=== PATIENT | male | born 1975 | race Caucasian/White ===

== ENCOUNTER 2017-05-26 18:31 | Inpatient (IN) ==
[2017-05-26] MEDS ORDERED: NS 1,000 ML IV ONE ×3 (19:01→23:37)
[2017-05-26 19:41] LABS: MANUAL DIFF NEEDED? NO
[2017-05-26 19:44] LABS: BASO% 0.2 % (0.0-0.8); EOS# 0.09 X1000 (0.0-0.7); EOS% 0.6 % (0.0-10.0); HEMATOCRIT 47.1 % (42.0-52.0); HEMOGLOBIN 16.2 g/dL (14.0-18.0); IMM GRAN# 0.02 X1000 (0.0-0.04); IMM GRAN% 0.1 % (0.0-0.5); LYMPH# 1.45 X1000 (1.2-3.4); MCH 30.8 PG (27-31); MCHC 34.4 g/dL (33-37); MCV 89.5 FL (81-99); MONO# 0.93 X1000 (0.11-0.59); MONO% 6.4 % (1.7-9.3); MPV 10.5 FL (7.4-10.4); NEUT% 82.7 % (42.2-75.2); PLT 283 X1000 (130-400); RBC 5.26 XMIL (4.7-6.1)
[2017-05-26 20:08] LABS: ACETAMINOPHEN < 1.2 ug/mL (10-30); AGAP 16; ALBUMIN 4.4 g/dL (3.5-5.0); ALKALINE PHOSPHATASE 76 U/L (32-122); BUN 10 mg/dL (8-22); CHLORIDE 104 mmol/L (98-107); COSMO 285; GOT 24 U/L (10-34); GPT 30 U/L (10-44); POTASSIUM 3.5 mmol/L (3.5-5.1); SODIUM 144 mmol/L (136-145); TCO2 24 mmol/L (25-35); TOTAL BILIRUBIN 0.23 mg/dL (0.20-1.00); TOTAL PROTEIN 7.4 g/dL (6.3-8.3)
[2017-05-26 20:23] LABS: FREE T4 1.55 ng/dL (0.93-1.70)
[2017-05-26 20:38] LABS: URINE CULTURE NEEDED? NO; URINE MICRO REVIEW NEEDED? NO; URINE SOURCE CATH
[2017-05-26 20:42] LABS: BILIRUBIN URINE NEGATIVE (NEGATIVE); BLOOD URINE NEGATIVE (NEGATIVE); COLOR YELLOW; GLUCOSE URINE NEGATIVE (NEGATIVE); LEUKOCYTES URINE NEGATIVE (NEGATIVE); NITRITE URINE NEGATIVE (NEGATIVE); PROTEIN URINE TRACE mg/dL (NEGATIVE); SP GRAVITY URINE 1.017; TURBIDITY URINE CLEAR (CLEAR); UR EPITHELIAL CELLS <10 /HPF (<10); URINE BACTERIA NEGATIVE /HPF; URINE RBC <10 /HPF (<10); URINE WBC <10 /HPF (<10); UROBILINOGEN URINE NORMAL (NORMAL)
[2017-05-26 20:53] LABS: UR AMPHETAMINES MT NONE DETECTED (NONE DETECT); UR BARBITUATES MT NONE DETECTED (NONE DETECT); UR BENZODIAZ MT NONE DETECTED (NONE DETECT); UR CANNABIS MEDTOX NONE DETECTED (NONE DETECT); UR COCAINE MT NONE DETECTED (NONE DETECT); UR METHADONE MEDTOX NONE DETECTED (NONE DETECT); UR OPIATES MT NONE DETECTED (NONE DETECT); UR OXYCODONE MEDTOX NONE DETECTED (NONE DETECT); UR PCP MEDTOX NONE DETECTED (NONE DETECT)
[2017-05-26] MEDS ORDERED: ATIVAN IV ONE (21:04)
--- NOTE | 2017-05-26 22:02 | Diag Imaging Result Doc PS360 ---
CT HEAD W/O CONTRAST - 05/26/2017 INDICATION: ams TECHNIQUE: A CT dose reduction protocol was used. COMPARISON: None FINDINGS: The ventricles and sulci are normal in size and contour. No intracranial mass or hemorrhage. The skull is intact. The sinuses mastoids and middle ears are clear. IMPRESSION: Negative exam. Electronically signed by Eddie Alves 05/26/2017 9:59 PM
--- NOTE | 2017-05-26 22:04 | Diag Imaging Result Doc PS360 ---
CHEST-PORTABLE - 05/26/2017 INDICATION: ams TECHNIQUE: COMPARISON: 05/19/2017 FINDINGS: The lungs are normally expanded and clear. Heart size and mediastinal contours are normal. No pneumothorax or pleural effusion. IMPRESSION: Negative exam. Electronically signed by Eddie Alves 05/26/2017 10:02 PM
--- NOTE | 2017-05-26 22:11 | ED EKG INTERP ---
This chart was entered by Darrel Covarrubias Scribe, acting as scribe for Tiburcio Lehman MD. EKG Interpretation - EKG Time of EKG reading by physician:: 19:54 EKG Read and Signed by:: Tiburcio Lehman EKG Interpretation (*Must complete 3 of following elements*): Normal Rate: 133 Rhythm: Sinus tachycardia Attestation - Physician/ NANETTE Attestation Patient care was provided by Advanced Practice Provider:: No The physician spent face to face time with patient:: Yes Advanced Practice Provider documentation review:: Supervising physician onsite and consulted in the evaluation and care of this patient. The physician did have a face to face encounter with the patient. This chart was documented by the indicated scribe, (Darrel Covarrubias Scribe) and accurately reflects the services I performed and decisions made by me, Tiburcio Champion MD, as attested by the provider's signature.
--- NOTE | 2017-05-26 22:13 | PROVIDER DOCUMENTATION ---
This chart was entered by Darrel Covarrubias Scribe, acting as scribe for Tiburcio Lehman MD. [id number] Abuse/Overdose - General Chief Complaint: Overdose Stated Complaint: od Time Seen by Provider: 05/26/17 19:00 Source: family, EMS Unable to obtain history due to:: altered Allergies/Adverse Reactions: Allergies Allergy/AdvReac Type Severity Reaction Status Date / Time No Known Allergies Allergy Verified 05/26/17 18:56 Home Medications: Home Medication List Medication Instructions Recorded Confirmed Last Taken Type NK [No Home Medications] 05/26/17 05/26/17 Unknown History - History of Present Illness-Drug/Alcohol Nature of Presenting Problem: Pt is a 41 yowm who presents to ER via EMS with CC of AMS/disorientation. Mother reports that pt's brother called EMS today because pt became disoriented and confused/altered and was unable to get up from fall. Mother reports that pt has intermittently abused meth x10 years, was sent to rehab, relapsed, but then self admitted himself and was released 1 week ago. On exam, pt is awake, but non verbal. This episode of drinking or use began:: just prior to arrival Severity: reports: moderate, severe Situational problems related to:: reports: N/A Psychiatric Complaints: reports: hallucinating (visually) Associated Symptoms: reports: other (See HPI;). denies: denies symptoms Any injuries associated with this episode of intoxication?: No Similar Symptoms Previously?: Yes - Substance Abuse Substance Use: reports: amphetamines Review of Systems - Adult - REVIEW OF SYSTEMS - ADULT ROS:: ROS per family Constitutional: reports: no symptoms reported Eyes: reports: no symptoms reported Ears, Nose, Mouth & Throat: reports: no symptoms reported Cardiovascular: reports: no symptoms reported Respiratory: reports: no symptoms reported Gastrointestinal: reports: no symptoms reported Genitourinary: reports: no symptoms reported Musculoskeletal: reports: no symptoms reported Integumentary: reports: no symptoms reported Neurological: reports: no symptoms reported Psychiatric: reports: alcohol/drug dependence, other (disoriented/altered). denies: anxiety, anti-depressant use, depression, emotional problems, insomnia, panic attacks, suicidal thoughts Endocrine: reports: no symptoms reported Hematologic/Lymphatic: reports: no symptoms reported Allergic/Immunologic: reports: no symptoms reported All Other Systems: Reviewed and Negative Past History - Adult - PAST MEDICAL HISTORY-ADULT Review of Records: reports: Nursing Assessment Review, Medications Reviewed Respiratory: reports: asthma Psychiatric: reports: anxiety, depression. denies: suicide attempt - PRIOR SURGERIES/PROCEDURES Surgical/Procedure History: reports: other (FINGER AMPUTATION) - IMMUNIZATION STATUS Childhood Immunizations: See Nurse Assessment Flu Vaccine: See Nurse Assessment - SOCIAL HISTORY Substance Use: amphetamines Physical Exam-General - PHYSICAL EXAM-ADULT Initial Vital Signs Reviewed: Yes - CONSTITUTIONAL General Appearance: alert, moderate distress, other (pt is awake and alert but non-verbal with visual hallucinations, swatting/staring/and blowing at things above his head) - EYES Eyes: PERRL/EOMI, pink conjunctivae - RESPIRATORY Respiratory: chest non-tender, lungs clear, normal breath sounds, no pleuratic chest pain, no respiratory distress, no accessory muscle use. negative: respiratory distress, decreased breath sounds, accessory muscle use, wheezing - CARDIOVASCULAR Cardiovascular: normal peripheral pulses, tachycardia, other (HTN (184/127)). negative: regular rate, rhythm, bradycardia, irregularly irregular - SKIN Integumentary: normal color, normal turgor, diaphoresis. negative: warm/dry, ecchymosis, laceration(s) - PSYCHIATRIC Psych/Mental Status: disheveled, other (awake; non-verbal; visual hallucinations ). negative: normal mood/affect, normal thought content, normal thought process , oriented x 3 Progress - PLAN OF CARE/RESULTS Progress/Plan/Lab Results: Vital Signs - 8 hr 05/26/17 18:49 05/26/17 18:50 05/26/17 20:34 Temperature 98.7 F Pulse Rate 135 H 133 H 120 H Respiratory Rate 33 H 32 H 20 Blood Pressure 144/88 144/88 143/127 O2 Sat by Pulse Oximetry 93 L 94 L 96 05/26/17 21:36 Temperature Pulse Rate 124 H Respiratory Rate 29 H Blood Pressure 189/130 O2 Sat by Pulse Oximetry 99 Laboratory Results - last 24 hr 05/26/17 05/26/17 05/26/17 19:30 19:30 19:30 WBC 14.55 H RBC 5.26 Hgb 16.2 Hct 47.1 MCV 89.5 MCH 30.8 MCHC 34.4 RDW Std Deviation 14.4 Plt Count 283 MPV 10.5 H Immature Gran % (Auto) 0.1 Neut % (Auto) 82.7 H Lymph % (Auto) 10.0 L [place] % (Auto) 6.4 Eos % (Auto) 0.6 Baso % (Auto) 0.2 Immature Gran # (Auto) 0.02 Neut # (Auto) 12.03 H Lymph # (Auto) 1.45 [place] # (Auto) 0.93 H Eos # (Auto) 0.09 Baso # (Auto) 0.03 Sodium 144 Potassium 3.5 Chloride 104 Carbon Dioxide 24 L Anion Gap 16 BUN 10 Creatinine 1.5 H Estimated GFR/1.73 m2 52 BUN/Creatinine Ratio 7 Glucose 87 Calculated Osmolality 285 Calcium 9.0 Total Bilirubin 0.23 AST 24 ALT 30 Alkaline Phosphatase 76 Creatine Kinase Total Protein 7.4 Albumin 4.4 Globulin 3.0 Albumin/Globulin Ratio 1.5 Vitamin B12 TSH Free T4 Urine Source Urine Color Urine Turbidity Urine pH Ur Specific [place] Urine Protein Ur Glucose (Stick) Ur Ketones (Stick) Urine Blood Urine Nitrite Urine Bilirubin Urobilinogen Dipstick Urine Leukocytes Urine WBC (Auto) Urine RBC (Auto) U Epithel Cells (Auto) Urine Bacteria (Auto) Salicylates < 3.00 L Urine Opiates Screen Ur Oxycodone Screen Urine Methadone Screen Acetaminophen < 1.2 L Ur Barbiturates Screen Ur Phencyclidine Scrn Ur Amphetamines Screen U Benzodiazepines Scrn Urine Cocaine Screen U Cannabinoids Screen Plasma/Serum Ethyl Alc 05/26/17 05/26/17 05/26/17 19:30 19:30 20:30 WBC RBC Hgb Hct MCV MCH MCHC RDW Std Deviation Plt Count MPV Immature Gran % (Auto) Neut % (Auto) Lymph % (Auto) [place] % (Auto) Eos % (Auto) Baso % (Auto) Immature Gran # (Auto) Neut # (Auto) Lymph # (Auto) [place] # (Auto) Eos # (Auto) Baso # (Auto) Sodium Potassium Chloride Carbon Dioxide Anion Gap BUN Creatinine Estimated GFR/1.73 m2 BUN/Creatinine Ratio Glucose Calculated Osmolality Calcium Total Bilirubin AST ALT Alkaline Phosphatase Creatine Kinase 200 Total Protein Albumin Globulin Albumin/Globulin Ratio Vitamin B12 259 TSH 1.91 Free T4 1.55 Urine Source CATH Urine Color YELLOW Urine Turbidity CLEAR Urine pH 6.0 Ur Specific [place] 1.017 Urine Protein TRACE A Ur Glucose (Stick) NEGATIVE Ur Ketones (Stick) NEGATIVE Urine Blood NEGATIVE Urine Nitrite NEGATIVE Urine Bilirubin NEGATIVE Urobilinogen Dipstick NORMAL Urine Leukocytes NEGATIVE Urine WBC (Auto) <10 Urine RBC (Auto) <10 U Epithel Cells (Auto) <10 Urine Bacteria (Auto) NEGATIVE Salicylates Urine Opiates Screen Ur Oxycodone Screen Urine Methadone Screen Acetaminophen Ur Barbiturates Screen Ur Phencyclidine Scrn Ur Amphetamines Screen U Benzodiazepines Scrn Urine Cocaine Screen U Cannabinoids Screen Plasma/Serum Ethyl Alc 05/26/17 20:30 WBC RBC Hgb Hct MCV MCH MCHC RDW Std Deviation Plt Count MPV Immature Gran % (Auto) Neut % (Auto) Lymph % (Auto) [place] % (Auto) Eos % (Auto) Baso % (Auto) Immature Gran # (Auto) Neut # (Auto) Lymph # (Auto) [place] # (Auto) Eos # (Auto) Baso # (Auto) Sodium Potassium Chloride Carbon Dioxide Anion Gap BUN Creatinine Estimated GFR/1.73 m2 BUN/Creatinine Ratio Glucose Calculated Osmolality Calcium Total Bilirubin AST ALT Alkaline Phosphatase Creatine Kinase Total Protein Albumin Globulin Albumin/Globulin Ratio Vitamin B12 TSH Free T4 Urine Source Urine Color Urine Turbidity Urine pH Ur Specific [place] Urine Protein Ur Glucose (Stick) Ur Ketones (Stick) Urine Blood Urine Nitrite Urine Bilirubin Urobilinogen Dipstick Urine Leukocytes Urine WBC (Auto) Urine RBC (Auto) U Epithel Cells (Auto) Urine Bacteria (Auto) Salicylates Urine Opiates Screen NONE DETECTED Ur Oxycodone Screen NONE DETECTED Urine Methadone Screen NONE DETECTED Acetaminophen Ur Barbiturates Screen NONE DETECTED Ur Phencyclidine Scrn NONE DETECTED Ur Amphetamines Screen NONE DETECTED U Benzodiazepines Scrn NONE DETECTED Urine Cocaine Screen NONE DETECTED U Cannabinoids Screen NONE DETECTED Plasma/Serum Ethyl Alc Orders Category Date Time Status CHEST-PORTABLE [RAD] Stat Exams 05/26/17 21:[address] HEAD W/O CONTRAST [CT] Stat Exams 05/26/17 21:05 Completed ACETAMINOPHEN [TDM] Stat Lab 05/26/17 19:30 Completed ALCOHOL BLOOD Stat Lab 05/26/17 19:30 Completed CBC WITH ELECTRONIC DIFF [HEME] Stat Lab 05/26/17 19:30 Completed CK TOTAL [CHEM] Stat Lab 05/26/17 19:30 Completed COMPREHENSIVE METABOLIC PANEL [CHEM] Stat Lab 05/26/17 19:30 Completed FREE T4 Stat Lab 05/26/17 19:30 Completed SALICYLATES [TDM] Stat Lab 05/26/17 19:30 Completed TSH Stat Lab 05/26/17 19:30 Completed URINALYSIS W/POSS RFLX CULT-1 [URINALYSIS] Stat Lab 05/26/17 20:30 Completed URINE DRUG SCREEN MEDTOX Stat Lab 05/26/17 20:30 Completed VITAMIN B12 Stat Lab 05/26/17 19:30 Completed 0.9% Sodium Chloride Inj [Ns] 1,000 ml Med 05/26/17 19:01 Discontinued IV 999 mls/hr 0.9% Sodium Chloride Inj [Ns] 1,000 ml Med 05/26/17 21:04 Discontinued IV 999 mls/hr Lorazepam [Ativan] Med 05/26/17 21:04 Discontinued 2 mg IV NOW ONE EKG [EKG] Stat Ther 05/26/17 19:01 Ordered Result Diagrams: 05/26/17 19:30 05/26/17 19:30 - XRAY 1 XRAY: Bilateral XRAY Study: Chest Impression: See EMR Report XRAY Interpretation: Negative exam - Dr. Alves (Radiologist) - CT/MRI 1 CT Study: Head Impression: See EMR Report CT Results: Negative - Dr. Alves (Radiologist) - CONSULTS/PCP/HOSPITALIST Notification #1 *Consult/PCP/Hospitalist*: Dr. Irwin (Hospitalist) Time Discussed: 22:08 Consult Disposition: Admit Departure - Departure Date of Disposition Decision: 05/26/17 Time of Disposition Decision: 22:13 DIAGNOSIS: Altered mental status Qualifiers: Altered mental status type: delirium Qualified Code(s): R41.0 - Disorientation , unspecified Disposition: ADMITTED INPATIENT 09 Certified Medical Emergency: Emergent Condition: Fair Referrals and Follow-Ups: None,PCP [Primary Care Provider] - - Critical Care Note This patient required my direct & personal management of CC.: No Attestation - Physician/ NANETTE Attestation Patient care was provided by Advanced Practice Provider:: No The physician spent face to face time with patient:: Yes Advanced Practice Provider documentation review:: Supervising physician onsite and consulted in the evaluation and care of this patient. The physician did have a face to face encounter with the patient. This chart was documented by the indicated scribe, (Darrel Covarrubias Scribe) and accurately reflects the services I performed and decisions made by me, Tiburcio Champion MD, as attested by the provider's signature.
[2017-05-26] MEDS ORDERED: LABETALOL IV ONE (22:14)
[2017-05-26] MEDS ORDERED: LABETALOL IV PRN (22:14)
[2017-05-26] MEDS ORDERED: ZOFRAN IV PRN (23:37)
[2017-05-26] MEDS ORDERED: ATIVAN IV PRN (23:37)
[2017-05-26] MEDS ORDERED: TYLENOL PO PRN (23:37)
--- NOTE | 2017-05-27 02:45 | HISTORY AND PHYSICAL ---
DATE AND TIME OF HISTORY AND PHYSICAL: 05/26/2017 at 22:45. CHIEF COMPLAINT: Altered mental status and possible overdose. HISTORY OF PRESENT ILLNESS: Mr. Diego is a 41-year-old male who presented to the ER this evening at approximately 18:30. Mr. Diego has a past medical history of asthma, depression, anxiety, and previous suicide attempts of trying to hang himself and ingestion of ethylene glycol. The patient did have to receive temporary dialysis secondary to complications from his ingestion. According to his family, his problems with depression started after he from his . Prior to his ER visit today, the patient has been seen in the ER several times over the past 6-7 months for very vague symptoms of some numbness and tingling in his hands as well as reported right shoulder pain. The patient also reported on 1 visit that he felt as though air was coming out of his right ear and his right shoulder. His mother also reports that he occasionally has visual hallucinations as well as talks out of his head. His family denied any previous psychiatric diagnoses other than his depression and anxiety. The patient does have a history of methamphetamine abuse though the patient's family denies any recent illicit drug use or alcohol use. Family reports that prior to the patient's arrival today he was working outside in the yard. They came in around approximately 4 p.m. to find him lying in the floor. According to ER documentation, family found the patient on the floor crawling and hallucinating and pointing up. Upon arrival to the ER, ER staff documented that the patient had slurred speech and was oriented to person and place only. Josué manuel also documented that the patient admitted to taking sleeping pills and denied any suicidal ideations. Upon our evaluation in the ER the patient was awake, though was essentially nonverbal other than mumbling which was undiscernible. He did occasionally follow commands by squeezing my hand and would look at you when you called his name. He did have a recent prescription bottle for ten 1 mg Klonopin that was prescribed on May 19 which was empty though his mother denied him having any previous prescriptions for this. There is also a recent prescription for Cipro antibiotic though it is unknown what infection he may have had REVIEW OF SYSTEMS: A review of systems was unable to be obtained due to the patient's current mentation. PAST MEDICAL HISTORY: 1. Asthma. 2. Depression. 3. Anxiety. 4. History of 2 previous suicide attempts with trying to hang himself and ingestion of ethylene glycol. 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 SOCIAL HISTORY: The patient is . He is currently employed as a roller painter. The patient's mother reports that his depression and anxiety seemed to have started several years ago after the patient got . His family denies any known history of alcohol abuse. He does have a history of methamphetamine abuse though his family denies that he had been recently using methamphetamines. He is a smoker and smokes approximately a pack a day and has done so for many years. FAMILY HISTORY: Positive for his father passing away secondary to complications from diabetes. There is also a history of kidney disease as well. His mother is alive and otherwise healthy except for having to have a pacemaker placed. ALLERGIES: Patient has no known drug allergies. HOME MEDICATIONS: At this time we are unable to confirm the patient's medications though he did recently have a prescription filled for Klonopin 1 mg tablets as well as Cipro 500 mg tablets. DIAGNOSTIC DATA/LABORATORY RESULTS: White blood cell count 14.5, hemoglobin 16.2, hematocrit 47.1, platelet count is 283,000. Sodium 144, potassium 3.5, chloride 104, bicarb 24, anion gap of 16, BUN 10, creatinine 1.5 with a GFR of 52, glucose 87, calcium 9. Liver function tests within normal limits. CK 200. Troponin less than 0.01. Vitamin B12 69. TSH 1.91 and free T4 is 1.55. Salicylate level was less than 3. Acetaminophen level is less than 1.2. Serum alcohol level was 0. Urinalysis was positive for trace protein though was otherwise within normal limits. Urine drug screen was negative. EKG showed sinus tachycardia at a rate of 133. Chest x-ray showed no acute abnormality per Radiology. CT of the head showed no intracranial abnormality per Radiology. PHYSICAL EXAMINATION: VITAL SIGNS: Temperature 98.3 degrees, heart rate 89, respirations 22, blood pressure is 140/93, oxygen saturation is 98% nasal cannula at 2 L. GENERAL: Mr. Diego is a 41-year-old male. He was sitting in the ER stretcher. The patient upon exam was awake, though was essentially nonverbal except for some unintelligible mumbling. He only followed very simple commands of squeezing my hand. He did appear to be slightly restless as well. HEENT: Head is atraumatic, normocephalic. Pupils are equal, round, reactive to light, were 4 mm bilaterally. Oral mucosa was slightly dry. Oropharynx is clear. NECK: Supple. Trachea midline. No carotid bruits noted upon auscultation bilaterally. CARDIOVASCULAR: Patient had normal S1, S2. No murmurs, gallops, or rubs appreciated with a regular rate and rhythm. PULMONARY: Patient has symmetrical chest expansion bilaterally. Lung sounds were clear to auscultation in bilateral full renee. No respiratory distress noted. ABDOMEN: Soft, nondistended and nontender. There was no facial grimacing noted upon palpation. Bowel sounds were present in all 4 quadrants. EXTREMITIES: No cyanosis, clubbing or edema noted. The patient was able to move all 4 extremities and pedal pulses were 3+ bilaterally. INTEGUMENTARY: The patient's skin is pink, warm, dry, and intact. No lesions or sores noted. NEUROLOGICAL: The patient is awake, though as previously mentioned other than some unintelligible mumbling he was essentially nonverbal. He would respond to calling of his name by turning his head and looking toward the sound of the voice and did on 2 occasions follow the command of squeezing my hand upon instruction. At this time the patient's neurological exam was limited due to his current condition. ASSESSMENT AND PLAN: 1. Metabolic encephalopathy. At this time this is of uncertain etiology though could be related to possible substance abuse. The patient did present with confusion as well as tachycardia and was hypertensive. He does have a history of methamphetamine abuse though his urine drug screen was negative at this time. Spice ingestion could also be a possibility. There also was a reported questionable possible sleeping pill ingestion, according to his family. Also there are the reports by family of visual hallucinations and "talking out of his head sometimes." We will closely monitor his neurological status. We will do neuro checks, seizure and aspiration precautions. He will be NPO at this time and we will continue to monitor closely. 2. Acute kidney injury. Patient's creatinine has increased from 1.1 approximately 7 days ago to 1.5 now. We will continue with fluid hydration. The patient did receive 2 L normal saline bolus in the ER and we will continue with normal saline at 25 mL/h. We will also do a renal ultrasound. 3. Leukocytosis. This is of certain of uncertain etiology at this time as well though could be reactive. The patient has not had any fever. Urinalysis as well as a chest x-ray are clear. We will continue to monitor him closely for any signs of infection. 4. Hypertension and Tachycardia. Administration of fluids have improved his heart rate. Also his blood pressure improved with labetalol. We will continue fluid hydration and labetalol PRN. 4. History of asthma. We have placed p.r.n. orders for DuoNeb treatments. 5. Nicotine dependence. The patient will placed on ICU with telemetry. He will have vital signs per ICU protocol. DVT prophylaxis will be provided with SCDs. We will repeat a CBC and CMP in the morning. Further orders and recommendations pending hospital course, diagnostic studies, and physician evaluation. Dictated by SHIRAZ Kapoor for Patrice Irwin MD cc: Patrice Irwin MD pt examined, seen face to face, he is acutely delirious although he dose not have a focal neurologic deficit, family insists that patient over an undisclosed substance, his family reports that he has not had illicit substances in 3 months and not likely to be withdrawing, he does have leukocytosis and mild renal injury , we will treat these issues and monitor for neurologic improvement or change, otherwise agree with above plan APENOT MTDD
[2017-05-27 03:35] LABS: URINE CULTURE NEEDED? NO; URINE MICRO REVIEW NEEDED? NO; URINE SOURCE CATH
[2017-05-27 03:37] LABS: BILIRUBIN URINE NEGATIVE (NEGATIVE); BLOOD URINE NEGATIVE (NEGATIVE); COLOR YELLOW; GLUCOSE URINE NEGATIVE (NEGATIVE); LEUKOCYTES URINE NEGATIVE (NEGATIVE); NITRITE URINE NEGATIVE (NEGATIVE); PH URINE 6.5; PROTEIN URINE TRACE mg/dL (NEGATIVE); SP GRAVITY URINE 1.015; TURBIDITY URINE CLEAR (CLEAR); UROBILINOGEN URINE NORMAL (NORMAL)
[2017-05-27 03:39] LABS: UR EPITHELIAL CELLS <10 /HPF (<10); URINE BACTERIA NEGATIVE /HPF; URINE RBC <10 /HPF (<10); URINE WBC <10 /HPF (<10)
[2017-05-27 03:47] LABS: UR CREAT RANDOM 130.2 mg/dL (14-26)
[2017-05-27 06:35] LABS: HEMATOCRIT 45.1 % (42.0-52.0); HEMOGLOBIN 15.3 g/dL (14.0-18.0); MCH 31.6 PG (27-31); MCHC 33.9 g/dL (33-37); MCV 93.2 FL (81-99); MPV 10.5 FL (7.4-10.4); RBC 4.84 XMIL (4.7-6.1)
[2017-05-27 06:58] LABS: AGAP 16; ALBUMIN 3.8 g/dL (3.5-5.0); ALKALINE PHOSPHATASE 67 U/L (32-122); BUN 7 mg/dL (8-22); CALCIUM 8.2 mg/dL (8.8-10.2); CHLORIDE 105 mmol/L (98-107); COSMO 280; GOT 27 U/L (10-34); GPT 25 U/L (10-44); POTASSIUM 3.8 mmol/L (3.5-5.1); SODIUM 142 mmol/L (136-145); TCO2 21 mmol/L (25-35); TOTAL BILIRUBIN 0.42 mg/dL (0.20-1.00); TOTAL PROTEIN 6.6 g/dL (6.3-8.3)
[2017-05-27] MEDS: NS 1,000 ML IV SCH ×2 (10:36→19:43)
--- NOTE | 2017-05-27 10:59 | PROGRESS NOTE ---
DATE: 05/27/2017 SUBJECTIVE: This morning, I saw Mr. Diego. The brother was at the bedside. From the history it seems Mr. Diego just came out of a drug rehabilitation program about 2 weeks ago. He was there for 3 months. Apparently in the past he used to use a lot of methamphetamine. According to the brother since he came from the rehab he has noted that Mr. Diego constantly has episodes of hallucinations and paranoia. However, yesterday he was brought in because he became extremely confused. He did not know what was going on. Brought into the emergency department. Initial workup has been unremarkable. This morning Mr. Diego, however, refers to be doing okay. There are episodes that he will be able to respond to questions and there are episodes where he will just go completely out. OBJECTIVE: Vital signs: Blood pressure is 157/86, pulse 84, respirations 30, temperature is 99.5 degrees. Patient is saturating 97% on room air. General: Mr. Diego is a 41- year-old male. He is in bed. Does not seem to be in any distress. HEENT: Mucosa is slightly dry. Anicteric. Acyanotic. Neck: Supple. Chest: Clear. No crepitations. No rhonchi. Cardiovascular: Regular rate and rhythm. No murmurs. No rubs. No gallops. Abdomen: Soft. There is no hepatosplenomegaly. Bowel sounds are present. Extremities: No pedal edema. MAGAZINE WRITER: Patient is awake, alert. He is oriented to person and to place. Disoriented to time. Follows basic commands. Psychiatric: Patient looks extremely anxious, very paranoid. Keeps pointing at things that are not there. Speaks in a very low, pressured tone. The patient thought that I was shouting at him and he did say do not shout at me. LABORATORY DATA: WBC is 13.82, hemoglobin is 15.3, platelet count of 239,000. Chemistry is also reviewed, completely normal. A CT scan of the head which was done on presentation his unremarkable. I's and O's, urine output of 1700. ASSESSMENT: 1. Altered mental status on presentation, likely due to recreational drug induced encephalopathy. 2. History of drug abuse (methamphetamine). Patient had about 3 months of drug rehabilitation. He just came out of the program about 2 weeks ago. 3. Hallucinations and paranoia. I am not sure if this is drug induced psychotic reaction versus a genuine underlying mental illness (possible schizophrenia). We started the patient on olanzapine and will consult Donna Nina. 4. Acute kidney injury. This has improved. I think this is mainly from dehydration. We are going to continue with the fluid. I have discontinued the ultrasound since the creatinine has actually normalized. 5. Hypertension. This is probably secondary to drug side effects. If the patient has been on methamphetamine or any beta-adrenergic receptor activator will be extremely careful not use a beta lucho in this patient. cc: Isidro Elise MD MTDD
[2017-05-27] MEDS: HALDOL IV PRN ×2 (11:24→23:07)
[2017-05-27] MEDS: ZYPREXA PO SCH (21:08)
[2017-05-28] MEDS: NS 1,000 ML IV SCH ×2 (05:21→20:16)
[2017-05-28 05:30] LABS: MANUAL DIFF NEEDED? NO
[2017-05-28 06:02] LABS: AGAP 12; BUN 8 mg/dL (8-22); CALCIUM 8.2 mg/dL (8.8-10.2); CHLORIDE 106 mmol/L (98-107); COSMO 276; POTASSIUM 4.1 mmol/L (3.5-5.1); SODIUM 139 mmol/L (136-145); TCO2 21 mmol/L (25-35)
[2017-05-28 06:05] LABS: BASO% 0.3 % (0.0-0.8); EOS% 4.5 % (0.0-10.0); HEMATOCRIT 45.5 % (42.0-52.0); HEMOGLOBIN 15.1 g/dL (14.0-18.0); IMM GRAN# 0.04 X1000 (0.0-0.04); IMM GRAN% 0.5 % (0.0-0.5); LYMPH# 2.27 X1000 (1.2-3.4); LYMPH% 25.6 % (20.5-51.1); MCH 31.2 PG (27-31); MCHC 33.2 g/dL (33-37); MONO# 0.54 X1000 (0.11-0.59); MONO% 6.1 % (1.7-9.3); MPV 10.6 FL (7.4-10.4); PLT 155 X1000 (130-400); RBC 4.84 XMIL (4.7-6.1)
[2017-05-28] MEDS: DUONEB (A & A) INH PRN ×3 (07:41→20:20)
[2017-05-28] MEDS: ZYPREXA PO SCH ×2 (08:15→20:16)
--- NOTE | 2017-05-28 11:36 | PROGRESS NOTE ---
DATE: 05/28/2017 SUBJECTIVE: Today, Mr. Diego referred to be a lot better. He is more awake and more conversational. However, he seems to believe that there is something grossly abnormal with his GI tract. He thinks there is a lot of gas coming through his ears and it is because his GI tract is non functioning. He also believes that there is a lot of helicopters around him and it is all because his GI tract is non functioning. He did have an appointment to see Dr. Reynaga this in his office. Patient denies any abdominal pain. No vomiting. No diarrhea. No form of GI bleed. OBJECTIVE: Vital signs: Blood pressure is 109/77, pulse is 63, respirations 20, temperature 98.3. General: Mr. Diego is a 41-year-old male. He is in bed. He does not seems to be in any distress. HEENT: Mucosa is pink and moist. Anicteric. Acyanotic. Neck: Supple. Chest: Good air entry bilaterally. No crepitations. No rhonchi. Cardiovascular: Regular rate and rhythm. Abdomen: Soft. Slightly distended, but nontender. Bowel sounds are present. Extremities: No pedal edema. COMPUTER SUPPORT TECHNICIAN: Patient is awake and alert and oriented x4. Psychiatric: In terms of psych, patient seems to have a lot of delusional ideation. LABORATORY DATA: WBC is 8.85, hemoglobin is 15.1, platelet count of 155. Chemistry is reviewed. Sodium is 139, potassium is 4.1, chloride is 106, bicarb is 21. TSH is 1.91. B12 is 259. A CT scan of the head was unremarkable. ASSESSMENT: 1. Altered mental status on presentation, due to drug-induced encephalopathy. According to the patient and he had taken a lot of Benadryl "because he wanted to leave this world." We will therefore treat this as a suicidal attempt, and we are pending [facility] to evaluate the patient. 2. History of drug abuse (methamphetamine). Patient had completed 3 months of drug rehabilitation and came out of the program just about 2 weeks ago. 3. Hallucinations and paranoia. Today, patient has delusional ideation of some planes around him and gas coming through his ears because of gastrointestinal problems, which he does not have any symptoms of. Patient was started on olanzapine yesterday. The hallucinations and paranoia seem to have slightly improved. We will be pending [facility] evaluation. 4. Acute kidney injury is improved. 5. Hypertension, stable. So in general, today Mr. Diego is more alert and more conversational. However, has some delusional beliefs that helicopters are around him and he is having gas through his ears because of some gastrointestinal problems. I think this is all related to drug-induced psychotic tendencies, or patient does have a true underlying psychotic disorder. We are pending [facility] to evaluate him. I think patient would eventually need inpatient psych admission. PLAN: 1. We will discontinue the Guy catheter today. 2. We will transfer the patient to the floor after [facility] evaluation. cc: Isidro Elise MD
[2017-05-29] MEDS: NS 1,000 ML IV SCH (06:36)
[2017-05-29] MEDS: ZYPREXA PO SCH ×2 (07:34→10:44)
[2017-05-29 13:51] VITALS: BP 120/63
--- NOTE | 2017-05-29 20:46 | DISCHARGE SUMMARY ---
ADMISSION DATE: 05/26/2017 DISCHARGE DATE: 05/29/2017 FINAL DISCHARGE DIAGNOSES: 1. Toxic encephalopathy. 2. Hallucinations with paranoia. 3. Acute kidney injury. 4. History of methamphetamines abuse. HOSPITAL COURSE: Mr. Diego is a 41-year-old male, with a history of methamphetamine use, who was brought to the ER with confusion and hallucinations. Upon admission, a head CT was done that was noted to be negative. The patient also underwent a urine drug toxicology screen that was noted to be unremarkable. The patient was noted to be in acute renal failure, with a creatinine of 1.5. IV fluids were initiated, and the patient's creatinine improved to 1.2. With IV fluid hydration, the patient's mental status improved. There was question about whether the patient could be suffering from schizophrenia, given the hallucinations and paranoia that were exhibited by the patient. The patient was seen by [facility] inpatient psychiatric services. The patient stated he was not interested in being placed in an inpatient facility for his psychiatric issues. The patient stated that he has been feeling depressed lately, but he is currently refusing any type of inpatient psychiatric therapy. The patient is currently alert and oriented x4. He is not exhibiting any signs of confusion or paranoia at this time. When asked today, the patient stated that he was not suicidal. Stated that he wanted to be discharged home. We have asked that the patient sign a no-harm contract, and we will provide the patient with information follow up for psychiatric care as an outpatient. DISCHARGE MEDICATIONS: None. FOLLOWUP INSTRUCTIONS: The patient is scheduled to follow up with Dr. Reynaga on 05/31/2017. The patient has been advised to keep that appointment. The patient has also been advised to find a primary care physician for routine health care. cc: Alexandrea Hansen MD MTDD
== END 2017-05-29 15:51 | disposition home or self-care (01) ==
LOC: ED 18:31 → SUATTDRO 22:17 → ICU 22:17 → 3N 05-28 17:16
PROVIDERS: ATTEND Internal Medicine

== ENCOUNTER 2019-03-01 15:41 | Inpatient (IN) ==
[2019-03-01] MEDS ORDERED: NS 1,000 ML IV ONE (16:09)
[2019-03-01 16:40] LABS: BASO# 0.04 X1000 (0.0-0.2); BASO% 0.4 % (0.0-0.8); EOS# 0.08 X1000 (0.0-0.7); EOS% 0.8 % (0.0-10.0); HEMATOCRIT 45.9 % (42.0-52.0); HEMOGLOBIN 15.5 g/dL (14.0-18.0); IMM GRAN# 0.03 X1000 (0.0-0.04); IMM GRAN% 0.3 % (0.0-0.5); LYMPH# 2.75 X1000 (1.2-3.4); LYMPH% 26.8 % (20.5-51.1); MCH 30.2 PG (27-31); MCHC 33.8 g/dL (33-37); MCV 89.3 FL (81-99); MONO# 0.48 X1000 (0.11-0.59); MONO% 4.7 % (1.7-9.3); MPV 10.5 FL (7.4-10.4); NEUT# 6.88 X1000 (1.4-6.5); PLT 316 X1000 (130-400); RBC 5.14 XMIL (4.7-6.1); RDW 14.8 % (11.5-14.5); WBC 10.26 X1000 (4.8-10.8)
[2019-03-01 16:58] LABS: ALB/GLOB RATIO 1.3; ALBUMIN 4.3 g/dL (3.5-5.0); CALCIUM 9.3 mg/dL (8.8-10.2); CREATININE 1.3 mg/dL (0.7-1.2); MAGNESIUM 2.1 mg/dL (1.5-2.7); TOTAL BILIRUBIN 0.33 mg/dL (0.20-1.00); TOTAL PROTEIN 7.7 g/dL (6.3-8.3)
[2019-03-01 17:00] LABS: UR AMPHETAMINES QUAL NONE DETECTED (NONE DETECT); UR BARBITUATES QUAL NONE DETECTED (NONE DETECT); UR BENZODIAZEPIN QUAL NONE DETECTED (NONE DETECT)
[2019-03-01 17:01] LABS: ALLEN TEST YES; BE -16.9 mmoll (-3.0-3.0); BLOOD TYPE ARTERIAL; HCO3-(ACT) 11.5 mmoll (20.0-26.0); METHB 0.9 % (0.0-1.5); O2(CT) 19.1 mL/dL (15.0-23.0); O2HB 90.2 % (95.0-99.0); PO2(98.6) 104 mmHg (60-100); SAMPLE BLOOD; SAO2 98.6 % (95.0-100.0); pH(98.6) 7.24 (7.35-7.45)
[2019-03-01 17:01] LABS: UR CANNABINOIDS QUAL NONE DETECTED (NONE DETECT); UR COCAINE QUAL NONE DETECTED (NONE DETECT); UR METHADONE QUAL NONE DETECTED (NONE DETECT); UR OPIATES QUAL NONE DETECTED (NONE DETECT); UR OXYCODONE QUAL NONE DETECTED (NONE DETECT); UR PCP QUAL NONE DETECTED (NONE DETECT)
[2019-03-01 17:04] LABS: LACTATE > 20.00 mmoll (0.44-2.22); MODALITY ROOM AIR; PCO2(98.6) 19 mmHg (35-45)
[2019-03-01 17:17] LABS: ACETAMINOPHEN < 1.2 ug/mL (10-30); SALICYLATES < 3.00 mg/dL (3-10)
[2019-03-01 18:11] LABS: MAGNESIUM 2.1 mg/dL (1.5-2.7); PHOSPHORUS 4.1 mg/dL (2.7-4.5)
[2019-03-01 18:14] LABS: INR 0.87; PROTIME 12.5 Seconds (11.0-16.0)
[2019-03-01 18:37] LABS: CK INDEX 0.5 (0.0-2.5); CK-MB 3.72 ng/mL (0.0-5.0)
[2019-03-01] MEDS ORDERED: SODIUM CHLORIDE 0.9% INJ SCH (19:00)
[2019-03-01 19:04] LABS: ACETONE SERUM NEGATIVE (NEGATIVE)
[2019-03-01 19:13] LABS: ACETAMINOPHEN < 1.2 ug/mL (10-30); SALICYLATES < 3.00 mg/dL (3-10)
[2019-03-01] MEDS ORDERED: NS IV ONE (19:30)
[2019-03-01] MEDS ORDERED: ANTIZOL IV ONE (19:30)
[2019-03-01] MEDS: NS 1,000 ML IV SCH (19:40)
--- NOTE | 2019-03-01 19:40 | HISTORY AND PHYSICAL ---
PRIMARY CARE PHYSICIAN: Unknown. CHIEF COMPLAINT: Altered mental status, suicide attempt with ethylene glycol poisoning. HISTORY OF PRESENT ILLNESS: Mr. Diego is a 43-year-old male with a history that is largely unknown and obtained per chart review as he was discharged from [facility] yesterday for schizoaffective disorder, suicidal ideations, medication noncompliance, nicotine dependence. The report from the ER is that the patient drank ethylene glycol, unknown quantity, in an attempt for suicide. His brother found him when he was passed out and when he woke him up, he said he was trying to commit suicide by drinking antifreeze. He has actually tried this in the past and required hemodialysis. Labs done in the ER showed profound metabolic abnormalities consistent with ethylene glycol poisoning. He has a large osmolar gap, severe elevated anion gap metabolic acidosis, and ASSOCIATE LOAN OFFICER depression. His vital signs are stable at this time. His ABG does show a pH of 7.24, with a bicarbonate of 11.5, PCO2 of 19. Dr. Vázquez with Nephrology has been consulted. The patient has been started on fomepizole per recommendations from Poison Control. He will be going to the Intensive Care Unit for further treatment and evaluation. PAST MEDICAL HISTORY: 1. Recent admission to [facility] for suicidal ideations, which were resolved prior to discharge. 2. Schizoaffective disorder, bipolar type. 3. Medication noncompliance. 4. Nicotine dependence. 5. History of suicidal ideations in the past with ethylene glycol overdose requiring hemodialysis. PAST SURGICAL HISTORY: He has had a finger repair. SOCIAL HISTORY: He lives with his mother who apparently has dementia. He has 2 brothers. There is a history of illicit substance use and nicotine dependence. REVIEW OF SYSTEMS: Unable to obtain. ALLERGIES: No known allergies. DISCHARGE MEDICATIONS: From 02/28/2019: 1. Cymbalta 30 mg p.o. q. day. 2. Trazodone 150 mg p.o. q.h.s. 3. Remeron 15 mg p.o. q.h.s. 4. Invega 6 mg p.o. q.h.s. for psychosis. PHYSICAL EXAMINATION: VITAL SIGNS: Blood pressure 175/105, heart rate 134, respiratory rate 20, oxygen saturation 97% on room air. Temperature 97.8 degrees. GENERAL: An obese, male lying in a hospital bed, awake but stuporous. Speech is slurred. NEUROLOGIC: He is able to follow commands and tell us that he is at [facility]. Unable to give the year. No overt focal deficits are noted. HEENT: Head is atraumatic, normocephalic. His pupils are dilated and sluggish to light response bilaterally. Oral mucosa is dry. NECK: Trachea is midline. CHEST: Clear to auscultation bilaterally. CARDIOVASCULAR: Tachycardic and irregular. No murmurs. S1, S2 is noted. GI: Soft, nontender, nondistended. Bowel sounds hypoactive. EXTREMITIES: No edema. Pulses are 1+ bilaterally. DIAGNOSTIC DATA: WBC 10.26, hemoglobin 15.5, hematocrit 45.9, platelet count 316. INR 0.87. ABG on room air: pH of 7.24, PCO2 of 19, PO2 of 104, bicarbonate 11.5; carboxyhemoglobin 7.6. Lactate greater than 20. Sodium 140, potassium 4.0, chloride 103, CO2 of 10, anion gap 27, BUN 7, creatinine 1.3, glucose 116. Serum osmolarity is 359. LFTs are negative. CK is 775. Protein 7.7, lactic acid 9. Toxicology report is negative. ASSESSMENT AND PLAN: 1. Presumed ethylene glycol overdose in an attempt for suicide: The patient has severe acidosis with an elevated anion gap and osmolar gap, all consistent with ethylene glycol poisoning. We have consulted Dr. Vázquez and will start fomepizole per Poison Control recommendation. We have checked other indicators for elevated anion gap, all of which are negative. 2. Elevated anion gap metabolic acidosis: As above. We are checking for organic acids, acetone level and will continue to treat for presumed ethylene glycol poisoning. Fomepizole has been ordered and Dr. Vázquez has been consulted. We will follow the patient's ABGs and labs closely. 3. History of suicidal ideation, schizoaffective disorder, bipolar and depression: Aware. Medications are on hold. Will obviously need reevaluation by Psychiatry once he is medically stable. DVT prophylaxis with sequential compression devices. Further recommendations forthcoming. Critical care time with this patient is one hour. Dictated by SHIRAZ Alvares for Isidro Elise MD cc: Royal J. SHIRAZ Nascimento MD I have seen and examined Mr Diego today. No family at bedside. I have also reviewed her labs and imaging studies. Mr Diego presents with ethylene glycol ingestion with severe high anion gap, osmolar gap and lactate gap. Fomepizole protocol started and Nephrology consulted. I agree with the above HPI and the plan reflects my opinion discussed with the FOOD AND BEVERAGE LEAD. KYRA BYERS
[2019-03-01] MEDS: PROTONIX IV SCH (20:02)
[2019-03-01 20:10] LABS: ALLEN TEST YES; BE -19.8 mmoll (-3.0-3.0); BLOOD TYPE ARTERIAL; HCO3-(ACT) 9.4 mmoll (20.0-26.0); O2(CT) 21.3 mL/dL (15.0-23.0); O2HB 94.3 % (95.0-99.0); PO2(98.6) 100 mmHg (60-100); SAMPLE BLOOD; SAO2 98.4 % (95.0-100.0)
[2019-03-01 20:12] LABS: LACTATE > 20.00 mmoll (0.44-2.22); PCO2(98.6) 15 mmHg (35-45); pH(98.6) 7.19 (7.35-7.45)
[2019-03-01 20:13] LABS: MODALITY ROOM AIR
--- NOTE | 2019-03-01 20:41 | Diag Imaging Result Doc PS360 ---
CHEST-PORTABLE - 03/01/2019 INDICATION: ams COMPARISON: 02/01/2019 FINDINGS: Lung volumes are severely low. The lungs are clear. Heart size is normal. No pneumothorax or pleural effusion. IMPRESSION: Severely low lung volumes. Electronically signed by Eddie Alves 03/01/2019 8:39 PM
[2019-03-01 21:05] LABS: HEMATOCRIT 49.3 % (42.0-52.0); MCH 29.5 PG (27-31); MCHC 32.5 g/dL (33-37); MCV 90.8 FL (81-99); MPV 10.3 FL (7.4-10.4); RBC 5.43 XMIL (4.7-6.1); RDW 14.9 % (11.5-14.5); WBC 13.96 X1000 (4.8-10.8)
[2019-03-01] MEDS ORDERED: ZOFRAN IV PRN (21:05)
--- NOTE | 2019-03-01 21:24 | Diag Imaging Result Doc PS360 ---
CHEST-PORTABLE - 03/01/2019 INDICATION: vas cath placement COMPARISON: 03/01/2019 FINDINGS: There is a new right central catheter in good position with the tip at the mid SVC. No pneumothorax or pleural effusion. The lungs are clear. Heart size and pulmonary vascularity is top normal. IMPRESSION: No complication from line placement. Electronically signed by Eddie Alves 03/01/2019 9:22 PM
[2019-03-01] MEDS ORDERED: TIGHT: 0.2 ML/HR FOR DIALYSIS MISC PRN (21:33)
[2019-03-01] MEDS ORDERED: NS 2,000 ML MISC PRN (21:33)
[2019-03-01] MEDS ORDERED: HEPARIN IV PRN (21:33)
[2019-03-01 22:21] LABS: URINE SOURCE CATH
--- NOTE | 2019-03-01 22:34 | OPERATIVE NOTE ---
PROCEDURE DATE: 03/01/2019 PROCEDURE PERFORMED: Right internal jugular vein Vas-Cath placement under ultrasound guidance. SURGEON: Dr. El Adame. PREOPERATIVE DIAGNOSIS: Acute renal failure. POSTOPERATIVE DIAGNOSIS: Acute renal failure. ANESTHESIA: I have been asked to place a Vas-Cath for acute dialysis. NARRATIVE: The patient is in Trendelenburg position. The right side of the neck was prepped and draped in a sterile fashion. We ultrasounded the veins, identified the vein. Made a small stab incision and accessed the internal jugular vein, passed the guidewire without difficulty. We then dilated the tract sequentially. Then passed the Trialysis catheter. We were able to aspirate blood from each lumen. We then flushed each lumen with saline. We secured the flange to the skin with the nylon contained within the tray. We, once again, cleaned the exit site with Chloraseptic and then placed an OpSite dressing on it. He tolerated it well. A chest x-ray was ordered. cc: El Adame MD
--- NOTE | 2019-03-01 22:42 | NEPHROLOGY CONSULTATION ---
DATE: 03/01/2019 REASON FOR CONSULTATION: Toxic ingestion. HISTORY OF PRESENT ILLNESS: Mr. Diego is a 43-year-old white male who was apparently recently discharged from [facility] where he was admitted for schizoaffective disorder and suicidal ideation. He reported drank ethylene glycol at home. I was able to speak to his brother who states that he has the gallon jug that the patient bought and there is a small amount missing. The patient unfortunately is not able to answer any questions for me. He was treated appropriately in the emergency room with fomepizole and we were contacted promptly for assistance with management. He did receive fluids at 125 mL an hour. Urine output remains good. PAST MEDICAL HISTORY: As above. HOME MEDICATIONS: Not listed. ALLERGIES: None. SOCIAL HISTORY: As above. FAMILY HISTORY, REVIEW OF SYSTEMS: Not obtainable otherwise from patient. PHYSICAL EXAMINATION: Blood pressure 139/94, heart rate 72, respirations 22. No acute distress. Eyes are open. He is facing forward but answers none of my questions. To confrontation did blink his eyes.Skin: Warm and dry. HEENT: Conjunctivae are pink. Pupils are equal. Oropharynx is dry. Neck: Supple. Trachea is midline. Neck veins are not distended. Heart: Regular, tachycardic. No gallops. Lungs: Equal. No crackles. Abdomen: Soft, nontender. Bowel sounds present. Extremities: Have no edema, clubbing, or cyanosis. Neurologic: Nonfocal except as above. IMPRESSION: Acute metabolic acidosis secondary to ingestion of ethylene glycol. Presumed. Marked lactic acidosis is present with a "lactate gap." This is consistent with ethylene glycol intoxication. He was treated appropriately with fomepizole. I have spoken directly with Dr. Adame who has placed a right internal jugular Vas-Cath. Dialysis tonight for 4 hours using a 4 K bath, 0 UF and 350 blood flow, 600 dialysate flow. We will check a blood gas at 11:30. Repeat dialysis if needed. Continue fomepizole. cc: Og Vázquez MD
[2019-03-01 22:50] LABS: BILIRUBIN URINE NEGATIVE (NEGATIVE); BLOOD URINE TRACE (NEGATIVE); COLOR STRAW; GLUCOSE URINE NEGATIVE (NEGATIVE); KETONE URINE NEGATIVE (NEGATIVE); LEUKOCYTES URINE NEGATIVE (NEGATIVE); NITRITE URINE NEGATIVE (NEGATIVE); PROTEIN URINE NEGATIVE (NEGATIVE); SP GRAVITY URINE 1.001; TURBIDITY URINE TURBID (CLEAR); UROBILINOGEN URINE NORMAL (NORMAL)
[2019-03-01 23:25] LABS: URINE WBC <10 /HPF (<10)
[2019-03-01 23:26] LABS: UR EPITHELIAL CELLS <10 /HPF (<10); URINE BACTERIA NEGATIVE /HPF; URINE CASTS NONE SEEN; URINE CRYSTALS NONE SEEN; URINE RBC <10 /HPF (<10); URINE SMALL ROUND CELLS NONE SEEN; URINE YEAST NONE SEEN
--- NOTE | 2019-03-01 23:38 | PROVIDER DOCUMENTATION ---
This chart was entered by Magy Mathew Scribe, acting as scribe for Dimitry Sharp MD. HPI-Psychological Disorder - General Chief Complaint: Suicide Attempt Stated Complaint: DRANK ANTIFREEZE A COUPLE OF HOURS AGO Time Seen by Provider: 03/01/19 15:57 Source: patient Allergies/Adverse Reactions: Patient Allergies Allergy/AdvReac Type Severity Reaction Status Date / Time No Known Allergies Allergy Verified 03/01/19 16:04 Home Medications: Home Medication List Medication Instructions Recorded Confirmed Last Taken Type Cyanocobalamin [Vitamin B-12] 1,000 microgm PO DAILY 30 Days #60 02/28/19 Unknown Rx tab Duloxetine [Cymbalta] 30 mg PO DAILY 30 Days #30 cap 02/28/19 Unknown Rx Ergocalciferol (Vitamin D2) 50,000 unit PO Q7D #6 cap 02/28/19 Unknown Rx [Vitamin D] Mirtazapine [Remeron] 15 mg PO QHS 30 Days #30 tab 02/28/19 Unknown Rx Paliperidone E.r. [Invega] 6 mg PO PCS 30 Days #60 tab 02/28/19 Unknown Rx Trazodone HCl 100 mg PO QHS 30 Days #30 tab 02/28/19 Unknown Rx - History of Present Illness-Psych Nature of Presenting Problem: 43yom with hx of depression, anxiety, schizoaffective disorder c/o SI since this afternoon. He reports that he drank a "cup" of antifreeze today as a suicide attempt. He reports he believes the government is "watching him." He is a poor historian. He reports his PCP as Dr. Whittaker. He denies any pain. He denies ed[place] rred vision, double vision, HI. Onset/Duration: reports: this afternoon Timing: reports: still present, constant Severity: reports: moderate, severe Psychiatric Complaints: reports: suicidal ideation. denies: homicidal thoughts Similar Symptoms Previously?: No Recently seen or treated by another doctor?: No Review of Systems - Adult - REVIEW OF SYSTEMS - ADULT ROS:: limited per condition (pt is poor historian) Constitutional: denies: chills, fever Eyes: reports: no symptoms reported Ears, Nose, Mouth & Throat: reports: no symptoms reported Cardiovascular: reports: no symptoms reported Respiratory: reports: no symptoms reported Gastrointestinal: reports: no symptoms reported Genitourinary: reports: no symptoms reported Musculoskeletal: reports: no symptoms reported Integumentary: reports: no symptoms reported Neurological: reports: no symptoms reported Psychiatric: reports: suicidal thoughts Endocrine: reports: no symptoms reported Hematologic/Lymphatic: reports: no symptoms reported Allergic/Immunologic: reports: no symptoms reported All Other Systems: Reviewed and Negative Past History - Adult - PAST MEDICAL HISTORY-ADULT Review of Records: reports: Old Records Reviewed, Nursing Assessment Review, Medications Reviewed Major Childhood Illnesses: reports: denies history Cardiovascular: reports: denies history Respiratory: reports: asthma Gastrointestinal: reports: denies history Obstetrical/Gynecological: reports: denies history Genitourinary: reports: denies history Musculoskeletal: reports: denies history Neurological: reports: denies history Psychiatric: reports: anxiety, depression Endocrine/Immune: reports: denies history Other Conditions: reports: denies history - PRIOR SURGERIES/PROCEDURES Surgical/Procedure History: reports: reviewed, not pertinent, other (4th digit) - IMMUNIZATION STATUS Childhood Immunizations: See Nurse Assessment Flu Vaccine: See Nurse Assessment - FAMILY HISTORY Family History: reviewed, not pertinent - SOCIAL HISTORY Smoking: cigarettes, less than 1 pack/day Substance Use: alcohol Living Situation: alone Physical Exam-Psych Focus - Physical Exam-Psych Initial Vital Signs Reviewed: Yes Appearance: no apparent distress, alert, disheveled Neurological: alert, oriented x 3 Behavior/Eye Contact/Speech: cooperative. negative: normal speech HENMT: normocephalic/atraumatic, other (dry mucous membranes). negative: moist mucous membranes Neck: non-tender, supple Respiratory: lungs clear, normal breath sounds, other (tachypneic). negative: crackles, wheezing Cardiovascular: regular rate, rhythm, no murmur, tachycardia. negative: bradycardia Abdominal Exam: non tender, soft Extremity: normal range of motion, non-tender, normal inspection, no pedal edema Integumentary: normal color, warm/dry Progress - PLAN OF CARE/RESULTS Progress/Plan/Lab Results: Vital Signs - 8 hr 03/01/19 15:44 03/01/19 15:53 03/01/19 16:00 Temperature 97.8 F Pulse Rate 134 H 119 H 112 H Respiratory Rate 20 21 28 H Blood Pressure 175/105 133/88 146/93 O2 Sat by Pulse Oximetry 97 97 97 03/01/19 16:10 03/01/19 16:20 03/01/19 16:30 Temperature Pulse Rate 102 H 110 H Respiratory Rate 31 H 15 Blood Pressure O2 Sat by Pulse Oximetry 96 97 98 03/01/19 16:33 03/01/19 16:40 03/01/19 16:50 Temperature Pulse Rate Respiratory Rate Blood Pressure 146/89 O2 Sat by Pulse Oximetry 97 99 98 03/01/19 17:00 03/01/19 17:10 03/01/19 17:20 Temperature Pulse Rate 113 H 111 H 110 H Respiratory Rate 17 25 H 37 H Blood Pressure O2 Sat by Pulse Oximetry 98 97 97 03/01/19 17:30 03/01/19 17:40 03/01/19 17:50 Temperature Pulse Rate 106 H 101 H 98 H Respiratory Rate 41 H 29 H 33 H Blood Pressure O2 Sat by Pulse Oximetry 97 97 96 03/01/19 18:00 Temperature Pulse Rate 108 H Respiratory Rate 16 Blood Pressure O2 Sat by Pulse Oximetry 97 Laboratory Results - last 24 hr 03/01/19 03/01/19 03/01/19 15:55 15:56 15:56 WBC 10.26 RBC 5.14 Hgb 15.5 Hct 45.9 MCV 89.3 MCH 30.2 MCHC 33.8 RDW Std Deviation 14.8 H Plt Count 316 MPV 10.5 H Immature Gran % (Auto) 0.3 Neut % (Auto) 67.0 Lymph % (Auto) 26.8 [place] % (Auto) 4.7 Eos % (Auto) 0.8 Baso % (Auto) 0.4 Immature Gran # (Auto) 0.03 Neut # (Auto) 6.88 H Lymph # (Auto) 2.75 [place] # (Auto) 0.48 Eos # (Auto) 0.08 Baso # (Auto) 0.04 PT INR Specimen Type Sample Site pH pCO2 pO2 HCO3 Base Excess Oxyhemoglobin ABG O2 Sat (Calculated) ABG O2 Saturation ABG Carboxyhemoglobin ABG Methemoglobin Crispin Test A-a O2 Difference Total Hemoglobin Lactate Blood Gas Modality FiO2 % Sodium Potassium Chloride Carbon Dioxide Anion Gap BUN Creatinine Estimated GFR/1.73 m2 BUN/Creatinine Ratio Glucose Serum Osmolality Calculated Osmolality Calcium Phosphorus Magnesium Total Bilirubin AST ALT Alkaline Phosphatase Creatine Kinase Creatine Kinase Index CK-MB (CK-2) Total Protein Albumin Globulin Albumin/Globulin Ratio Plasma Lactate Salicylates < 3.00 L Urine Opiates Screen Ur Oxycodone Screen Ur Methadone, Qual Acetaminophen < 1.2 L Ur Barbiturates Screen Ur Phencyclidine Scrn Ur Amphetamines Screen U Benzodiazepines Scrn Urine Cocaine Screen U Cannabinoids Screen Plasma/Serum Ethyl Alc Acetone Level NEGATIVE 03/01/19 03/01/19 03/01/19 15:56 15:56 15:56 WBC RBC Hgb Hct MCV MCH MCHC RDW Std Deviation Plt Count MPV Immature Gran % (Auto) Neut % (Auto) Lymph % (Auto) [place] % (Auto) Eos % (Auto) Baso % (Auto) Immature Gran # (Auto) Neut # (Auto) Lymph # (Auto) [place] # (Auto) Eos # (Auto) Baso # (Auto) PT INR Specimen Type Sample Site pH pCO2 pO2 HCO3 Base Excess Oxyhemoglobin ABG O2 Sat (Calculated) ABG O2 Saturation ABG Carboxyhemoglobin ABG Methemoglobin Crispin Test A-a O2 Difference Total Hemoglobin Lactate Blood Gas Modality FiO2 % Sodium 140 Potassium 4.0 Chloride 103 Carbon Dioxide 10 L Anion Gap 27 BUN 7 L Creatinine 1.3 H Estimated GFR/1.73 m2 60 BUN/Creatinine Ratio 5 Glucose 116 H Serum Osmolality 359 H Calculated Osmolality 278 Calcium 9.3 Phosphorus Magnesium 2.1 Total Bilirubin 0.33 AST 26 ALT 26 Alkaline Phosphatase 98 Creatine Kinase Creatine Kinase Index CK-MB (CK-2) Total Protein 7.7 Albumin 4.3 Globulin 3.4 Albumin/Globulin Ratio 1.3 Plasma Lactate Salicylates < 3.00 L Urine Opiates Screen Ur Oxycodone Screen Ur Methadone, Qual Acetaminophen < 1.2 L Ur Barbiturates Screen Ur Phencyclidine Scrn Ur Amphetamines Screen U Benzodiazepines Scrn Urine Cocaine Screen U Cannabinoids Screen Plasma/Serum Ethyl Alc Acetone Level 03/01/19 03/01/19 03/01/19 15:56 15:56 15:56 WBC RBC Hgb Hct MCV MCH MCHC RDW Std Deviation Plt Count MPV Immature Gran % (Auto) Neut % (Auto) Lymph % (Auto) [place] % (Auto) Eos % (Auto) Baso % (Auto) Immature Gran # (Auto) Neut # (Auto) Lymph # (Auto) [place] # (Auto) Eos # (Auto) Baso # (Auto) PT 12.5 INR 0.87 Specimen Type Sample Site pH pCO2 pO2 HCO3 Base Excess Oxyhemoglobin ABG O2 Sat (Calculated) ABG O2 Saturation ABG Carboxyhemoglobin ABG Methemoglobin Crispin Test A-a O2 Difference Total Hemoglobin Lactate Blood Gas Modality FiO2 % Sodium Potassium Chloride Carbon Dioxide Anion Gap BUN Creatinine Estimated GFR/1.73 m2 BUN/Creatinine Ratio Glucose Serum Osmolality Calculated Osmolality Calcium Phosphorus 4.1 Magnesium 2.1 Total Bilirubin AST ALT Alkaline Phosphatase Creatine Kinase 775 H Creatine Kinase Index 0.5 CK-MB (CK-2) 3.72 Total Protein Albumin Globulin Albumin/Globulin Ratio Plasma Lactate Salicylates Urine Opiates Screen Ur Oxycodone Screen Ur Methadone, Qual Acetaminophen Ur Barbiturates Screen Ur Phencyclidine Scrn Ur Amphetamines Screen U Benzodiazepines Scrn Urine Cocaine Screen U Cannabinoids Screen Plasma/Serum Ethyl Alc Acetone Level 03/01/19 03/01/19 03/01/19 16:14 16:20 16:53 WBC RBC Hgb Hct MCV MCH MCHC RDW Std Deviation Plt Count MPV Immature Gran % (Auto) Neut % (Auto) Lymph % (Auto) [place] % (Auto) Eos % (Auto) Baso % (Auto) Immature Gran # (Auto) Neut # (Auto) Lymph # (Auto) [place] # (Auto) Eos # (Auto) Baso # (Auto) PT INR Specimen Type ARTERIAL Sample Site R RADIAL pH 7.24 L pCO2 19 L* pO2 104 H HCO3 11.5 L Base Excess -16.9 L Oxyhemoglobin 90.2 L ABG O2 Sat (Calculated) 19.1 ABG O2 Saturation 98.6 ABG Carboxyhemoglobin 7.60 H* ABG Methemoglobin 0.9 Crispin Test YES A-a O2 Difference 22.0 Total Hemoglobin 15.0 Lactate > 20.00 H* Blood Gas Modality ROOM AIR FiO2 % 21.0 Sodium Potassium Chloride Carbon Dioxide Anion Gap BUN Creatinine Estimated GFR/1.73 m2 BUN/Creatinine Ratio Glucose Serum Osmolality Calculated Osmolality Calcium Phosphorus Magnesium Total Bilirubin AST ALT Alkaline Phosphatase Creatine Kinase Creatine Kinase Index CK-MB (CK-2) Total Protein Albumin Globulin Albumin/Globulin Ratio Plasma Lactate 9.0 H Salicylates Urine Opiates Screen NONE DETECTED Ur Oxycodone Screen NONE DETECTED Ur Methadone, Qual NONE DETECTED Acetaminophen Ur Barbiturates Screen NONE DETECTED Ur Phencyclidine Scrn NONE DETECTED Ur Amphetamines Screen NONE DETECTED U Benzodiazepines Scrn NONE DETECTED Urine Cocaine Screen NONE DETECTED U Cannabinoids Screen NONE DETECTED Plasma/Serum Ethyl Alc Acetone Level Orders Category Date Time Status Admit - [facility] Routine AdmDCTranf 03/01/19 18:35 Active Intake and Output-Strict ORDERED Care 03/01/19 18:35 Active Vital Signs Order Q 4-HR ASSESS Care 03/01/19 18:35 Active Z-Document. for Tele Applied ORDERED Care 03/01/19 18:35 Active Physician/Provider Consults Stat Cons 03/01/19 17:50 Ordered ABG [RESP] Routine Lab 03/01/19 16:53 Completed ACETAMINOPHEN [TDM] Stat Lab 03/01/19 15:55 Completed ACETAMINOPHEN [TDM] Stat Lab 03/01/19 15:56 Completed ACETONE SERUM [CHEM] Stat Lab 03/01/19 15:55 Completed ALCOHOL BLOOD Stat Lab 03/01/19 15:56 Completed CBC WITH DIFF [HEME] Stat Lab 03/01/19 15:56 Completed CK PROFILE [SP CHEM] Stat Lab 03/01/19 15:56 Completed CMP [COMPREHENSIVE METABOLIC PANEL] [CHEM] Stat Lab 03/01/19 15:56 Completed ETHYLENE GLYCOL [CONCEPCION] Stat Lab 03/01/19 16:33 Received LACTATE, PLASMA [CHEM] Stat Lab 03/01/19 16:20 Completed MAGNESIUM [CHEM] Stat Lab 03/01/19 15:56 Completed MAGNESIUM [CHEM] Stat Lab 03/01/19 15:56 Completed ORGANIC ACIDS SCREEN URINE [CONCEPCION] Stat Lab 03/01/19 16:14 Received PHOSPHORUS [CHEM] Stat Lab 03/01/19 15:56 Completed PROTIME WITH INR [COAG] Stat Lab 03/01/19 15:56 Completed SALICYLATES [TDM] Stat Lab 03/01/19 15:55 Completed SALICYLATES [TDM] Stat Lab 03/01/19 15:56 Completed SERUM OSMOLALITY [CHEM] Stat Lab 03/01/19 15:56 Completed URINE DRUG SCREEN Stat Lab 03/01/19 16:14 Completed 0.9% Sodium Chloride Inj [Ns] 1,000 ml Med 03/01/19 16:09 Discontinued IV 999 mls/hr Telemetry [OM.EQ] Routine Oth 03/01/19 18:35 Active Transfer/Admit Order [TRANSFER] Routine Transfer 03/01/19 17:54 Completed Gerda from poison control recommend fomepizole drip. dosage discussed with ANIKET Atkins here in the ER. pt with SI and antifreeze ingestion developing ASHIA, metabolic acidosis with anion gap need ICU admission and further management. pt care, assessment and plan discussed with the attending physician Dr. Nair and he agree with the plan as documented. Result Diagrams: 03/01/19 20:50 03/01/19 15:56 - EKG 1 Time of EKG reading by physician:: 16:20 EKG Read and Signed by:: Franko Nair EKG Interpretation (*Must complete 3 of following elements*): Abnormal Rate: 99 Rhythm: Normal sinus rhythm [place]: normal QRS: other (low voltage QRS) ST Wave: normal - CONSULTS/PCP/HOSPITALIST Notification #1 *Consult/PCP/Hospitalist*: ANIKET Atkins admitting for Dr. Elise Time Discussed: 17:42 Consult Disposition: Admit (HX, PE and pt care discussed, accepted. Wilbert request to call Dr. Vázquez. I discussed the case with Dr. Vázquez he will pt in the Hospital.) Departure - Departure Date of Disposition Decision: 03/01/19 Time of Disposition Decision: 17:42 DIAGNOSIS: Suicidal ideation, Elevated serum creatinine, Metabolic acidosis, High anion gap metabolic acidosis Ethylene glycol poisoning Qualifiers: Encounter type: initial encounter Injury intent: intentional self-harm Qualified Code(s): T52.8X2A - Toxic effect of other organic solvents, intentional self-harm, initial encounter Disposition: ADMITTED INPATIENT 09 Certified Medical Emergency: Emergent Condition: Serious - Critical Care Note This patient required my direct & personal management of CC.: No Attestation - Physician/ NANETTE Attestation Patient care was provided by Advanced Practice Provider:: No The physician spent face to face time with patient:: Yes Advanced Practice Provider documentation review:: Supervising physician onsite and consulted in the evaluation and care of this patient. The physician did have a face to face encounter with the patient. This chart was documented by the indicated scribe, (Magy Mathew Scribe) and accurately reflects the services I performed and decisions made by me, Dimitry Palencia MD, as attested by the provider's signature.
[2019-03-02] MEDS ORDERED: ANTIZOL IV ONE (00:30)
[2019-03-02] MEDS ORDERED: NS IV ONE (00:30)
[2019-03-02 01:23] LABS: ALLEN TEST YES; BE -7.9 mmoll (-3.0-3.0); BLOOD TYPE ARTERIAL; HCO3-(ACT) 18.7 mmoll (20.0-26.0); METHB 0.8 % (0.0-1.5); O2(CT) 20.4 mL/dL (15.0-23.0); O2HB 95.9 % (95.0-99.0); PCO2(98.6) 27 mmHg (35-45); PO2(98.6) 88 mmHg (60-100); SAMPLE BLOOD; SAO2 98.4 % (95.0-100.0); THB 15.1 g/dL (11.5-17.4); pH(98.6) 7.37 (7.35-7.45)
[2019-03-02 01:24] LABS: MODALITY ROOM AIR
[2019-03-02 02:12] LABS: HEMATOCRIT 44.5 % (42.0-52.0); HEMOGLOBIN 14.9 g/dL (14.0-18.0); RBC 4.99 XMIL (4.7-6.1); WBC 12.54 X1000 (4.8-10.8)
[2019-03-02 02:13] LABS: MCH 29.9 PG (27-31); MCHC 33.5 g/dL (33-37); MCV 89.2 FL (81-99); MPV 10.2 FL (7.4-10.4)
[2019-03-02 05:00] LABS: BLOOD TYPE ARTERIAL; SAMPLE BLOOD
[2019-03-02 05:01] LABS: ALLEN TEST YES; BE -4.9 mmoll (-3.0-3.0); HCO3-(ACT) 21.1 mmoll (20.0-26.0); METHB 0.2 % (0.0-1.5); O2HB 96.5 % (95.0-99.0); PCO2(98.6) 35 mmHg (35-45); PO2(98.6) 81 mmHg (60-100); SAO2 100.5 % (95.0-100.0); pH(98.6) 7.36 (7.35-7.45)
[2019-03-02 05:02] LABS: MODALITY ROOM AIR
[2019-03-02 05:03] LABS: BASO# 0.03 X1000 (0.0-0.2); BASO% 0.3 % (0.0-0.8); EOS# 0.05 X1000 (0.0-0.7); EOS% 0.4 % (0.0-10.0); HEMATOCRIT 42.3 % (42.0-52.0); HEMOGLOBIN 14.1 g/dL (14.0-18.0); IMM GRAN# 0.04 X1000 (0.0-0.04); IMM GRAN% 0.3 % (0.0-0.5); LYMPH# 2.63 X1000 (1.2-3.4); LYMPH% 21.9 % (20.5-51.1); MCH 29.8 PG (27-31); MCHC 33.3 g/dL (33-37); MCV 89.4 FL (81-99); MONO# 1.01 X1000 (0.11-0.59); MONO% 8.4 % (1.7-9.3); MPV 10.2 FL (7.4-10.4); NEUT# 8.24 X1000 (1.4-6.5); NEUT% 68.7 % (42.2-75.2); PLT 252 X1000 (130-400); RBC 4.73 XMIL (4.7-6.1)
[2019-03-02] MEDS: NS 1,000 ML IV SCH ×4 (05:17→18:09)
[2019-03-02 05:29] LABS: AGAP 12; ALB/GLOB RATIO 1.1; ALBUMIN 3.6 g/dL (3.5-5.0); ALKALINE PHOSPHATASE 83 U/L (32-122); BUN 3 mg/dL (8-22); CALCIUM 8.6 mg/dL (8.8-10.2); CHLORIDE 111 mmol/L (98-107); COSMO 278; CREATININE 0.9 mg/dL (0.7-1.2); ESTIMATED GFR > 60; GLUCOSE 105 mg/dL (70-104); GOT 19 U/L (10-34); GPT 22 U/L (10-44); MAGNESIUM 1.8 mg/dL (1.5-2.7); POTASSIUM 3.9 mmol/L (3.5-5.1); SODIUM 141 mmol/L (136-145); TCO2 18 mmol/L (25-35); TOTAL BILIRUBIN 0.33 mg/dL (0.20-1.00)
[2019-03-02 08:23] LABS: HEMATOCRIT 42.8 % (42.0-52.0); HEMOGLOBIN 13.9 g/dL (14.0-18.0); MCH 30.1 PG (27-31); MCHC 32.5 g/dL (33-37); MCV 92.6 FL (81-99); MPV 9.7 FL (7.4-10.4); RBC 4.62 XMIL (4.7-6.1); RDW 15.3 % (11.5-14.5); WBC 9.61 X1000 (4.8-10.8)
[2019-03-02] MEDS: CYMBALTA PO SCH (09:36)
--- NOTE | 2019-03-02 09:37 | PROGRESS NOTE ---
DATE: 03/02/2019 SUBJECTIVE: This morning, Mr. Diego refers to be doing a lot better. He was actually asking for food. He underwent emergent dialysis yesterday for ethylene glycol intoxication. OBJECTIVE: Current Vital Signs: Blood pressure is 115/61, pulse of 73, respirations are 23, temperature is 98.9 degrees. General Examination: Mr. Diego is a 43-year-old, gentleman. He is in bed. No distress. HEENT: Mucosa is pink and moist. Anicteric. Acyanotic. Neck: Supple. There is a Vas-Cath in the right jugular vein. Chest: Clear to auscultation. No crepitations. No rhonchi. Cardiovascular: Regular rate and rhythm. No murmurs, no rubs, no gallops. Abdomen: Soft, nontender. Bowel sounds present. : Guy catheter is in place. Extremities: No pedal edema. DEVELOPER ARCHITECT: The patient is awake, alert, and oriented. Laboratory Data: WBC is 9.61, hemoglobin is 13.9, platelet count of 225,000. Chemistry is also reviewed. Bicarb is up to 18. Creatinine is down to 0.9. ASSESSMENT AND PLAN: 1. Severe metabolic acidosis secondary to ethylene glycol ingestion. The patient is currently on fomepizole therapy and was evaluated by nephrology. An urgent dialysis was done yesterday. He seems to be doing a whole lot better. 2. Suicidal ideation with intent noted. The patient will be evaluated by psychiatry once he is medically stable. 3. History of schizoaffective disorder and bipolar disorder. We will restart the patient on his home medications. 4. Severe high anion gap metabolic acidosis associated with osmolar gap and lactate gap, all suggestive of ethylene glycol injection, improved with therapy. cc: Isidro Elise MD
[2019-03-02] MEDS: NS IV SCH (12:43)
[2019-03-02] MEDS: ANTIZOL IV SCH (12:43)
[2019-03-02 14:15] LABS: HEMATOCRIT 42.1 % (42.0-52.0); HEMOGLOBIN 13.7 g/dL (14.0-18.0); MCH 29.6 PG (27-31); MCHC 32.5 g/dL (33-37); MCV 90.9 FL (81-99); RBC 4.63 XMIL (4.7-6.1); WBC 9.43 X1000 (4.8-10.8)
[2019-03-02] MEDS: PROTONIX IV SCH (18:08)
[2019-03-02] MEDS: INVEGA PO SCH (18:08)
[2019-03-02] MEDS: DESYREL PO SCH (20:04)
[2019-03-02] MEDS: REMERON PO SCH (20:04)
[2019-03-03] MEDS: NS IV SCH ×2 (00:38→11:44)
[2019-03-03] MEDS: ANTIZOL IV SCH ×2 (00:38→11:44)
[2019-03-03] MEDS: NS 1,000 ML IV SCH ×3 (02:08→17:56)
[2019-03-03 04:43] LABS: ALLEN TEST YES; BE -3.3 mmoll (-3.0-3.0); BLOOD TYPE ARTERIAL; HCO3-(ACT) 22.3 mmoll (20.0-26.0); METHB 1.2 % (0.0-1.5); O2(CT) 20.1 mL/dL (15.0-23.0); O2HB 94.9 % (95.0-99.0); PCO2(98.6) 43 mmHg (35-45); PO2(98.6) 85 mmHg (60-100); SAMPLE BLOOD; SAO2 97.5 % (95.0-100.0); pH(98.6) 7.33 (7.35-7.45)
[2019-03-03 04:45] LABS: MODALITY ROOM AIR
[2019-03-03 05:42] LABS: BASO# 0.04 X1000 (0.0-0.2); BASO% 0.5 % (0.0-0.8); EOS# 0.16 X1000 (0.0-0.7); HEMATOCRIT 39.4 % (42.0-52.0); HEMOGLOBIN 12.9 g/dL (14.0-18.0); IMM GRAN# 0.02 X1000 (0.0-0.04); IMM GRAN% 0.2 % (0.0-0.5); LYMPH# 2.46 X1000 (1.2-3.4); LYMPH% 30.1 % (20.5-51.1); MCH 29.7 PG (27-31); MCHC 32.7 g/dL (33-37); MCV 90.8 FL (81-99); MONO# 0.44 X1000 (0.11-0.59); MONO% 5.4 % (1.7-9.3); MPV 10.5 FL (7.4-10.4); NEUT# 5.06 X1000 (1.4-6.5); NEUT% 61.8 % (42.2-75.2); PLT 218 X1000 (130-400); RBC 4.34 XMIL (4.7-6.1); RDW 15.1 % (11.5-14.5); WBC 8.18 X1000 (4.8-10.8)
[2019-03-03 06:11] LABS: AGAP 9; ALB/GLOB RATIO 1.1; ALBUMIN 3.2 g/dL (3.5-5.0); ALKALINE PHOSPHATASE 72 U/L (32-122); BUN 8 mg/dL (8-22); CALCIUM 8.2 mg/dL (8.8-10.2); CHLORIDE 111 mmol/L (98-107); COSMO 280; CREATININE 1.2 mg/dL (0.7-1.2); ESTIMATED GFR > 60; GLUCOSE 101 mg/dL (70-104); GOT 12 U/L (10-34); GPT 16 U/L (10-44); POTASSIUM 4.1 mmol/L (3.5-5.1); SODIUM 141 mmol/L (136-145); TCO2 21 mmol/L (25-35); TOTAL BILIRUBIN 0.28 mg/dL (0.20-1.00); TOTAL PROTEIN 6.1 g/dL (6.3-8.3)
[2019-03-03] MEDS: CYMBALTA PO SCH (08:21)
--- NOTE | 2019-03-03 09:43 | EKG Report ---
Test Performed on : 03/01/2019 4:19:35 PM Test Reason : ED. No order in [place] Blood Pressure : / mmHG Vent. Rate : 099 BPM Atrial Rate : 099 BPM P-R Int : 132 ms QRS Dur : 076 ms QT Int : 360 ms P-R-T Axes : 052 056 014 degrees QTc Int : 462 ms Normal sinus rhythm. Low voltage QRS Borderline ECG When compared with ECG of 19-FEB-2019 16:00, (Unconfirmed) No significant change was found Unconfirmed Result
--- NOTE | 2019-03-03 10:16 | NEPHROLOGY PROGRESS NOTE ---
DATE: 03/03/2019 SUBJECTIVE: Patient resting in bed. Awake. Appropriate and cooperative with exam. OBJECTIVE: Vital Signs: Temperature 98.9 degrees, pulse 77, respiratory rate 18, blood pressure 116/68. General: This is a middle-aged gentleman resting in bed. No acute distress. He is interactive appropriately. HEENT: Normocephalic, atraumatic. NETO. Neck: Supple without JVD. Cardiovascular: Regular rate and rhythm. Pulmonary: He is clear bilaterally. Abdomen: Soft. Positive bowel sounds. : Guy catheter. Extremities: No clubbing, cyanosis, or edema. Neurologic: Somewhat flat affect, but appropriate. INPUT AND OUTPUT: Intake 4.6 L output 2 L. LABORATORY DATA: WBC of 8.1, hemoglobin 12.9. Sodium 141, potassium 4.1, chloride 111, CO2 21, BUN 8, creatinine 1.2. ABGs this morning with a pH of 7.3, PCO2 43, bicarb of 22.3. Base excess of 3.3. He had Oxyhemoglobin of 94.5. His anion gap this morning is 9. ASSESSMENT AND PLAN: Metabolic acidosis secondary to ingestion of ethylene glycol, presumed. We have ordered an actual serum osmolality. We will make a decision based on that if we need to dialyze again today. The patient's urine output has picked up and is excellent. His other labs are acceptable. His acidosis appears to be improving. He continues on fomepizole. HD today. rg Dictated by SHIRAZ Argueta for Og Vázquez MD Face to face encounter, data reviewed, discussed with Oscar Vickers on 03/03/19. I agree with the above assessment and plan of care. rg cc: Og Vázquez MD [facility]
--- NOTE | 2019-03-03 12:47 | PROGRESS NOTE ---
DATE: 03/03/2019 SUBJECTIVE: Today, Mr. Diego refers to be doing fairly okay. Denies any complaints. OBJECTIVE: Blood pressure 134/83, pulse of 73, respirations 24, and temperature 98.2 degrees. The patient is saturating 96% on room air. General: Mr. Diego is a 43-year-old gentleman. He is in bed. He is not in any distress. HEENT: Mucosa is pink and moist. Anicteric. Acyanotic. Neck: Neck is supple. Lungs: Chest was clear to auscultation. No crepitations. No rhonchi. Cardiovascular: Regular rate and rhythm. No murmurs, no rubs, no gallops. GI: Abdomen is soft. Distended but nontender. Bowel sounds present. There is a Guy catheter in place. CAPACITOR REPAIRER: Patient is awake, alert, and oriented. LABORATORY DATA: WBC is 8.18, hemoglobin is 12.9, and platelet count of 218,000. Chemistry is also reviewed. Bicarb is 21. The patient's osmolar gap is 298, calculated is 280. The gap is 18 which is still elevated. ASSESSMENT: 1. Severe metabolic acidosis on presentation secondary to ethylene glycol injection. The patient is on fomepizole therapy, and also has had dialysis. Nephrology is on board. 2. Suicidal ideation with intent noted. Patient is currently on one-to-one observation, and Donna Nina will be consulted when patient is medically stable. 3. History of schizoaffective and bipolar disorders. Home medication has been resumed. The patient was just discharged from [facility] a day before he got admitted here. 4. Severe high anion gap metabolic acidosis associated with the osmolar gap and lactate gap, all suggestive of ethylene glycol injection improved. So in general, Mr. Diego seems to be doing a lot better. He is making adequate urine. His creatinine is normalized. He, however, still has mild osmolar gap so we will be waiting on nephrology's further recommendations if dialysis will be needed. He is still on fomepizole protocol until tomorrow. Once he is finished, then we will consult Donna Nina for further inpatient psych evaluation. Addendum: I have discussed care plan with Dr Vázquez. Patient will receive dialysis today. We will consult Donna Nina for psychiatry evaluation tomorrow. transfer to floor after dialysis or tomorrow with 1 to 1 observation. cc: Isidro Elise MD MTDTino
[2019-03-03] MEDS ORDERED: TIGHT: 0.2 ML/HR FOR DIALYSIS MISC PRN (15:47)
[2019-03-03] MEDS ORDERED: HEPARIN IV PRN (15:47)
[2019-03-03] MEDS ORDERED: NS 2,000 ML MISC PRN (15:47)
[2019-03-03] MEDS: INVEGA PO SCH (18:10)
[2019-03-03] MEDS: PROTONIX IV SCH (18:10)
[2019-03-03] MEDS: DESYREL PO SCH (20:09)
[2019-03-03] MEDS: REMERON PO SCH (20:09)
[2019-03-04] MEDS: ANTIZOL IV SCH (01:00)
[2019-03-04] MEDS: NS IV SCH (01:00)
[2019-03-04] MEDS: NS 1,000 ML IV SCH (03:17)
[2019-03-04 04:51] LABS: ALLEN TEST YES; BE 4.5 mmoll (-3.0-3.0); BLOOD TYPE ARTERIAL; HCO3-(ACT) 28.4 mmoll (20.0-26.0); O2(CT) 17.4 mL/dL (15.0-23.0); O2HB 95.1 % (95.0-99.0); PCO2(98.6) 46 mmHg (35-45); PO2(98.6) 77 mmHg (60-100); SAMPLE BLOOD; SAO2 97.6 % (95.0-100.0); pH(98.6) 7.42 (7.35-7.45)
[2019-03-04 04:53] LABS: MODALITY ROOM AIR
[2019-03-04 05:48] LABS: BASO# 0.03 X1000 (0.0-0.2); BASO% 0.4 % (0.0-0.8); EOS# 0.27 X1000 (0.0-0.7); EOS% 3.5 % (0.0-10.0); HEMATOCRIT 38.9 % (42.0-52.0); HEMOGLOBIN 12.9 g/dL (14.0-18.0); LYMPH# 1.92 X1000 (1.2-3.4); MCH 29.8 PG (27-31); MCHC 33.2 g/dL (33-37); MCV 89.8 FL (81-99); MONO# 0.54 X1000 (0.11-0.59); MPV 10.3 FL (7.4-10.4); NEUT# 4.93 X1000 (1.4-6.5); NEUT% 64.1 % (42.2-75.2); PLT 219 X1000 (130-400); RBC 4.33 XMIL (4.7-6.1); RDW 14.6 % (11.5-14.5); WBC 7.69 X1000 (4.8-10.8)
[2019-03-04 06:12] LABS: AGAP 10; ALB/GLOB RATIO 1.2; ALBUMIN 3.1 g/dL (3.5-5.0); ALKALINE PHOSPHATASE 69 U/L (32-122); BUN 6 mg/dL (8-22); CALCIUM 7.9 mg/dL (8.8-10.2); CHLORIDE 107 mmol/L (98-107); COSMO 283; ESTIMATED GFR > 60; GLUCOSE 99 mg/dL (70-104); GOT 12 U/L (10-34); GPT 13 U/L (10-44); MAGNESIUM 1.8 mg/dL (1.5-2.7); POTASSIUM 3.6 mmol/L (3.5-5.1); SODIUM 143 mmol/L (136-145); TCO2 26 mmol/L (25-35); TOTAL BILIRUBIN 0.32 mg/dL (0.20-1.00); TOTAL PROTEIN 5.7 g/dL (6.3-8.3)
--- NOTE | 2019-03-04 08:33 | NEPHROLOGY PROGRESS NOTE ---
DATE: 03/04/2019 SUBJECTIVE: He is awake, alert, responsive. OBJECTIVE: Vital Signs: Blood pressure 145/69, heart rate 67, respiration 15, afebrile. General: No acute distress. Skin: Warm and dry. Conjunctivae are pink. Neck: Neck veins are not distended. Heart: Regular. No gallops. Lungs: Equal. No crackles or wheezes. Abdomen: Soft, nontender. Bowel sounds present. Extremities: No edema, clubbing, or cyanosis. INPUT AND OUTPUT: Intake 3.9 L. Output 5.3 L IMPRESSION: Ethylene glycol intoxication. He underwent dialysis yesterday. Osmolal gap is 13. We will sign off. OK to remove his vascath when no longer needed for IV access. cc: MD MODESTA Watson
[2019-03-04] MEDS: CYMBALTA PO SCH (09:53)
--- NOTE | 2019-03-04 16:18 | PROGRESS NOTE ---
DATE: 03/04/2019 SUBJECTIVE: Patient is resting in bed. He is currently on one-to-one observation because of suicidal ideation. OBJECTIVE: Vital signs: Temperature 98.3 degrees, pulse 78, respiratory rate 22, blood pressure is 150/81, oxygen saturation is 94%. HEENT: Atraumatic, normocephalic. Cardiovascular system: S1, S2. Respiratory system: Has evidence of good air entry bilaterally. Abdomen: Soft, nontender. No masses felt. Extremities: No evidence of edema. Central nervous system: No obvious focal deficits noted. LABORATORY DATA: WBC 7.69, hematocrit is 38.9, with a platelet count of [id number]. ABG 7.42/46/77/97.6%. Chemistry: Sodium is 143, potassium 3.6, chloride 101, bicarb 26, BUN is 6, creatinine 1.0. ASSESSMENT AND PLAN: 1. Ethylene glycol poisoning. The patient was placed on fomepizole therapy and also did receive hemodialysis. Nephrology team has signed of as of today. 2. Major depression with suicide ideation. The patient is currently on one-to-one observation. Donna Nian was consulted to have patient transferred over to their service. 3. Schizoaffective disorder/bipolar disorder. Continue appropriate psych medications. 4. Deep vein thrombosis prophylaxis. SCDs. 5. Gastrointestinal prophylaxis. PPI. cc: Talon Zee MD
[2019-03-04] MEDS: INVEGA PO SCH (18:37)
[2019-03-04] MEDS: REMERON PO SCH (20:56)
[2019-03-04] MEDS: DESYREL PO SCH (20:56)
[2019-03-05 00:38] VITALS: BP 153/82
[2019-03-05] MEDS ORDERED: PROTONIX PO SCH (07:00)
== END 2019-03-05 00:30 | DRG 918 ==
LOC: ED 15:41 → SUATTDRO 18:06 → ICU 18:06
PROVIDERS: ATTEND Internal Medicine
CPT/HCPCS: 71010; 71045; 80053; 80101; 80196; 80301; 80307; 80320; 80324; 80329; 80345; 80346; 80353; 80358; 80361; 80365; 81001; 82003; 82009; 82055; 82550; 82553; 82693; 82805; 83605; 83735; 83919; 83930; 83992; 84100; 85025; 85027; 85610; 93005; 99285; A9270; C9113; G0431; G0434; G0479; G0480; G6038; G6039; G6040; J1451; J1644; J2405; J7030; S0164

== ENCOUNTER 2019-07-26 09:18 | Inpatient (IN) ==
[2019-07-26 10:07] LABS: INR 0.93; PROTIME 12.5 Seconds (11.0-16.0)
[2019-07-26 10:08] LABS: PTT 25.5 Seconds (22.3-41.8)
[2019-07-26 10:15] LABS: AGAP 16; ALB/GLOB RATIO 1.4; ALBUMIN 4.2 g/dL (3.5-5.0); ALKALINE PHOSPHATASE 86 U/L (32-122); BUN 11 mg/dL (8-22); CALCIUM 9.2 mg/dL (8.8-10.2); CHLORIDE 100 mmol/L (98-107); CK PROFILE 103 U/L (24-204); COSMO 271; ESTIMATED GFR > 60; GLUCOSE 129 mg/dL (70-104); GOT 15 U/L (10-34); GPT 19 U/L (10-44); POTASSIUM 4.1 mmol/L (3.5-5.1); SODIUM 135 mmol/L (136-145); TCO2 19 mmol/L (25-35); TOTAL BILIRUBIN 0.36 mg/dL (0.20-1.00); TOTAL PROTEIN 7.1 g/dL (6.3-8.3)
[2019-07-26 10:25] LABS: BASO# 0.02 X1000 (0.0-0.2); BASO% 0.2 % (0.0-0.8); EOS# 0.02 X1000 (0.0-0.7); EOS% 0.2 % (0.0-10.0); HEMATOCRIT 44.9 % (42.0-52.0); HEMOGLOBIN 14.9 g/dL (14.0-18.0); IMM GRAN# 0.03 X1000 (0.0-0.04); IMM GRAN% 0.2 % (0.0-0.5); LYMPH# 1.02 X1000 (1.2-3.4); LYMPH% 8.1 % (20.5-51.1); MCH 28.9 PG (27-31); MCHC 33.2 g/dL (33-37); MONO# 0.57 X1000 (0.11-0.59); MONO% 4.5 % (1.7-9.3); MPV 10.4 FL (7.4-10.4); NEUT% 86.8 % (42.2-75.2); PLT 273 X1000 (130-400); RBC 5.16 XMIL (4.7-6.1); RDW 15.6 % (11.5-14.5); WBC 12.66 X1000 (4.8-10.8)
[2019-07-26] MEDS ORDERED: DUONEB (A & A) INH ONE ×2 (10:28→11:25)
[2019-07-26] MEDS ORDERED: SOLU-MEDROL IV ONE (10:28)
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
[2019-07-26 10:40] LABS: LYMPHS 16 % (21-51); MONO 2 % (1-9); SEGS 82 % (42-75)
--- NOTE | 2019-07-26 11:04 | Diag Imaging Result Doc PS360 ---
EXAM: CHEST-1 VIEW HISTORY: sob TECHNIQUE: Chest single view COMPARISON: 06/08/2019 FINDINGS: The lungs are well expanded. The heart is not enlarged. The vessels are not distended. There are no infiltrates. No effusion identified. IMPRESSION: Negative exam. Electronically signed by Tj Velazquez 07/26/2019 11:01 AM
[2019-07-26 11:16] LABS: ALLEN TEST YES; BE -2.2 mmoll (-3.0-3.0); BLOOD TYPE ARTERIAL; HCO3-(ACT) 23.1 mmoll (20.0-26.0); METHB 1.1 % (0.0-1.5); O2(CT) 19.7 mL/dL (15.0-23.0); O2HB 92.4 % (95.0-99.0); PCO2(98.6) 33 mmHg (35-45); PO2(98.6) 68 mmHg (60-100); SAMPLE BLOOD; SAO2 96.5 % (95.0-100.0); THB 15.2 g/dL (11.5-17.4); pH(98.6) 7.42 (7.35-7.45)
[2019-07-26 11:18] LABS: MODALITY CANNULA
[2019-07-26] MEDS ORDERED: DUONEB (A & A) ONE (11:29)
--- NOTE | 2019-07-26 12:38 | HISTORY AND PHYSICAL ---
PRIMARY CARE PHYSICIAN: None. CHIEF COMPLAINT: Shortness of breath that began yesterday and progressively worsened. HISTORY OF PRESENTING ILLNESS: This is a 44-year-old male who presents to [facility] with complaints of shortness of breath that began yesterday and progressively worsened. States that he has a history of asthma, but is also a 2 pack a day smoker, sometimes more. Also has a history of depression and schizoaffective disorder. His workup showed on arrival he was saturating 94% on room air. His white blood cell count was 12.66. His chest x-ray showed a negative exam. He has wheezing throughout his entire posterior lung renee. In the emergency room, he did receive 2 DuoNebs and 125 mg of Solu- Medrol. He will be admitted for further evaluation and treatment. PAST MEDICAL HISTORY: Asthma, CHF, depression and schizoaffective disorder. 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 FAMILY HISTORY: Reviewed and noncontributory. SOCIAL HISTORY: Currently lives with family, is a 2 pack a day smoker. Denies any alcohol use. Denies any current illicit drug use but does have a history of substance abuse. ALLERGIES: He has no known drug allergies. HOME MEDICATIONS: A current list will need to be obtained, reconciled, reviewed and restarted as appropriate. LABORATORY DATA: Showed a white blood cell count of 12.66, hemoglobin 14.9, hematocrit 44.9, platelets 273,000. PT and INR of 12.5 and 0.93. ABG showed a pH of 7.42, pCO2 33, PO2 68, bicarb 23.1, and this was on 2 L via nasal cannula. Sodium 135, potassium 4.1, chloride 100, CO2 19, BUN of 11, creatinine 1, glucose 129. Cardiac enzyme was negative. ProBNP of 99. Plasma lactate of 2.6. IMAGING: Chest x-ray showed a negative exam. REVIEW OF SYSTEMS: He denied any fever, chills, blurred vision, dizziness, chest pain. He has had a nonproductive cough, shortness of breath. Denied any abdominal pain, constipation, diarrhea, nausea, vomiting, burning or hurting with urination. PHYSICAL EXAMINATION: VITAL SIGNS: On arrival, he had a temperature of 98.4 degrees, pulse 99, respirations 24, blood pressure 149/51, saturating 94% on room air. GENERAL: This is a 44-year-old male who is lying in the bed and answers questions appropriately. HEENT: Normocephalic, atraumatic. Normal ENT inspection. Oropharynx and nares are clear. EYES: Pupils are equal, round and reactive to light and accommodation. Extraocular movements are intact. NECK: Normal inspection, normal range of motion. LUNGS: With wheezing throughout entire posterior lung renee. Equal lung expansion. Chest wall movement is noted. O2 via nasal cannula currently in use. HEART: Regular rate and rhythm. No murmurs, rubs, or gallops. ABDOMEN: Soft, nontender, nondistended. Bowel sounds are present x4 quadrants. MUSCULOSKELETAL: He had 5/5 strength x4 extremities. NEUROLOGICAL: The cranial nerves 2-12 appear grossly intact. ASSESSMENT: 1. An acute asthma exacerbation. 2. Tobacco abuse. 3. Schizoaffective disorder, history of. PLAN: He will be admitted to the medical unit. We are going to check a urine drug screen, urinalysis, serial lactate, place on incentive spirometry peak flows. Healthy heart diet. We need to update and confirm home medications. O2 per protocol. DuoNeb q.4 hours, Solu-Medrol 80 mg IV q.8 and wean as he improves. Nicotine 21 mg transdermally daily. I did discuss at length smoking cessation with this patient, who verbalizes understanding and states he would like to quit, so we will do the nicotine patch at this time. Further orders after seen by attending. Dictated by SHIRAZ Nicolas for Venkata Fonseca MD cc: SHIRAZ Nicolas MD I agree with most components of history, physical, assessment and plan. A separate addendum has been dictated. MODESTA
[2019-07-26 13:05] LABS: URINE SOURCE CLEAN CATCH
[2019-07-26 13:18] LABS: UR AMPHETAMINES QUAL NONE DETECTED (NONE DETECT); UR BARBITUATES QUAL NONE DETECTED (NONE DETECT); UR BENZODIAZEPIN QUAL NONE DETECTED (NONE DETECT); UR CANNABINOIDS QUAL NONE DETECTED (NONE DETECT); UR COCAINE QUAL NONE DETECTED (NONE DETECT); UR METHADONE QUAL NONE DETECTED (NONE DETECT); UR OPIATES QUAL NONE DETECTED (NONE DETECT); UR OXYCODONE QUAL NONE DETECTED (NONE DETECT); UR PCP QUAL NONE DETECTED (NONE DETECT)
[2019-07-26 13:26] LABS: BILIRUBIN URINE NEGATIVE (NEGATIVE); BLOOD URINE NEGATIVE (NEGATIVE); COLOR YELLOW; GLUCOSE URINE NEGATIVE (NEGATIVE); KETONE URINE NEGATIVE (NEGATIVE); LEUKOCYTES URINE NEGATIVE (NEGATIVE); NITRITE URINE NEGATIVE (NEGATIVE); PROTEIN URINE NEGATIVE (NEGATIVE); SP GRAVITY URINE 1.018; TURBIDITY URINE CLEAR (CLEAR); UROBILINOGEN URINE NORMAL (NORMAL)
[2019-07-26 13:28] LABS: UR EPITHELIAL CELLS <10 /HPF (<10); URINE BACTERIA NEGATIVE /HPF; URINE RBC <10 /HPF (<10); URINE WBC <10 /HPF (<10)
--- NOTE | 2019-07-26 13:39 | EKG Report ---
Test Performed on : 07/26/2019 09:30:04 AM Test Reason : sob Blood Pressure : / mmHG Vent. Rate : 092 BPM Atrial Rate : 092 BPM P-R Int : 130 ms QRS Dur : 074 ms QT Int : 358 ms P-R-T Axes : 049 071 061 degrees QTc Int : 442 ms Normal sinus rhythm. Normal ECG When compared with ECG of 03-JUN-2019 09:40, Vent. rate has increased BY 33 BPM T wave inversion no longer evident in Anterior leads Unconfirmed Result
[2019-07-26] MEDS: DUONEB (A & A) INH SCH ×3 (16:00→22:47)
[2019-07-26] MEDS: NICODERM PATCH TD SCH (16:03)
--- NOTE | 2019-07-26 16:09 | PROGRESS NOTE ---
DATE: 07/26/2019 INTERVAL HISTORY: This is an addendum to the history and physical dictated by the nurse practitioner. I agree with most components of history and physical as documented in the nurse practitioner's note. In brief, Mr. Diego is a 44-year-old, man, with past medical history of schizophrenia, suicide attempt, intermittent asthma, multiple psychiatric admissions, came in with chief complaint of shortness of breath of about 24 to 48 hours' duration, which patient stated started suddenly. Associated with that, he also had occasional cough. In the emergency room, he was found to be wheezing, so the Hospitalist team was requested to admit him. At the time of my evaluation, he is mildly short of breath. He has also been frequently coughing. He states his cough has been nonproductive and his last asthma exacerbation was many months ago. VITAL SIGNS: Temperature 98.3 degrees, pulse 88, respiratory rate 20, blood pressure 150/70, saturating 94% with nasal cannula. PHYSICAL EXAMINATION: Morbidly obese, in mild distress. Oral cavity is moist. Air entry bilaterally equal. Mild end-expiratory wheezes. No rhonchi or crackles. S1, S2 normal. No murmur or gallop.Abdomen: Soft, obese, nontender. No lower extremity edema. He is alert and oriented x3. LABORATORY DATA: Labs suggestive of mild leukocytosis. No eosinophilia. ABG is essentially normal and essentially normal electrolytes, except mild lactic acidosis, which is likely because of his asthma exacerbation. IMAGING: Chest x-ray had suggested well-expanded lung without any acute pathology. ASSESSMENT AND PLAN: 1. Status asthmaticus: Acute exacerbation of intermittent asthma. I will treat it with intravenous methylprednisolone and albuterol/ipratropium nebulization. The most likely trigger could be his ongoing smoking. I will get a flu screen to rule out influenza. On his chest x-ray, he did not have pneumonia. 2. Lactic acidosis: This could be related to hypoxia due to asthma. I will trend it. I will also get D-dimer to rule out pulmonary embolism/lung infarct. 2. History of schizophrenia and insomnia. Continue home basic medication of mirtazapine, trazodone, and Invega. DISPOSITION: I will monitor patient inside on the medical floor. Plan of care discussed with him. His questions have been answered. He did not want me to call his mother and he said he would call by himself. cc: Venkata Fonseca MD MTDTino
[2019-07-26] MEDS ORDERED: PROTONIX PO ONE (16:23)
[2019-07-26] MEDS: SOLU-MEDROL IV SCH (18:23)
[2019-07-26] MEDS: LOVENOX SUBQ SCH (18:23)
[2019-07-26] MEDS: DESYREL PO SCH (20:16)
[2019-07-26] MEDS: LR 1,000 ML IV SCH (20:16)
[2019-07-26] MEDS: REMERON SOLTAB PO SCH (20:17)
[2019-07-26] MEDS: INVEGA PO SCH (20:17)
[2019-07-27] MEDS: SOLU-MEDROL IV SCH ×2 (02:30→09:42)
[2019-07-27] MEDS: DUONEB (A & A) INH SCH ×6 (03:20→23:05)
[2019-07-27 07:40] LABS: BASO# 0.01 X1000 (0.0-0.2); BASO% 0.1 % (0.0-0.8); HEMATOCRIT 44.3 % (42.0-52.0); HEMOGLOBIN 14.4 g/dL (14.0-18.0); IMM GRAN# 0.04 X1000 (0.0-0.04); IMM GRAN% 0.2 % (0.0-0.5); LYMPH# 1.03 X1000 (1.2-3.4); LYMPH% 5.6 % (20.5-51.1); MCH 28.3 PG (27-31); MCHC 32.5 g/dL (33-37); MCV 87.2 FL (81-99); MONO# 0.37 X1000 (0.11-0.59); MPV 10.6 FL (7.4-10.4); NEUT# 16.87 X1000 (1.4-6.5); NEUT% 92.1 % (42.2-75.2); PLT 273 X1000 (130-400); RBC 5.08 XMIL (4.7-6.1); RDW 15.9 % (11.5-14.5); WBC 18.32 X1000 (4.8-10.8)
[2019-07-27 07:41] LABS: AGAP 16; BUN 13 mg/dL (8-22); CALCIUM 9.2 mg/dL (8.8-10.2); CHLORIDE 106 mmol/L (98-107); COSMO 285; CREATININE 1.1 mg/dL (0.7-1.2); ESTIMATED GFR > 60; GLUCOSE 135 mg/dL (70-104); POTASSIUM 4.1 mmol/L (3.5-5.1); SODIUM 142 mmol/L (136-145); TCO2 20 mmol/L (25-35)
[2019-07-27 08:08] LABS: LYMPHS 4 % (21-51); MONO 6 % (1-9); SEGS 90 % (42-75)
[2019-07-27] MEDS: PROTONIX PO SCH (08:20)
[2019-07-27] MEDS: LR 1,000 ML IV SCH (09:42)
[2019-07-27] MEDS: NICODERM PATCH TD SCH (09:42)
[2019-07-27] MEDS ORDERED: TYLENOL PO PRN (11:24)
--- NOTE | 2019-07-27 15:16 | PROGRESS NOTE ---
DATE: 07/27/2019 INTERVAL HISTORY: His lactic acidosis improved after intravenous fluid resuscitation. SUBJECTIVE: He is feeling better. He states he is breathing better than before. We discussed about the fact that he is still on intravenous steroids, and then my plan was to change the steroids to orals, and he is in agreement with the plan. He denies undue cough. He wanted to go home. I discussed with him about possibly discharging him tomorrow if his respiratory status is better, and he is in agreement. OBJECTIVE: Vital Signs: Afebrile with temperature of 98.1 degrees, pulse 84, respiratory rate 16, blood pressure 139/67, saturating 96% on room air. General: Morbidly obese, not in any acute distress. HEENT: Oral cavity is moist. Lungs: Air entry bilaterally equal. Mild end- expiratory wheezes. No rhonchi or crackles. Heart: S1, S2 normal. No murmur or gallop. Abdomen: Soft, nontender. Extremities: No lower extremity edema. Neurologic: He is alert and oriented x3. IMAGING AND LABORATORY DATA: Labs suggestive of leukocytosis with 0% eosinophil count, likely steroid-induced leukocytosis. Normal electrolytes. Lactate has become normal. Blood cultures are in lab without any growth. Chest x-ray was unremarkable. ASSESSMENT: 1. Acute exacerbation of asthma. 2. Tobacco abuse. 3. Schizoaffective disorder. PLAN: 1. For status asthmaticus, I will stop intravenous methylprednisolone, and start him on oral prednisone starting tonight. Continue albuterol/ipratropium nebulization ongoing. He was counseled about smoking cessation. 2. Lactic acidosis because of hypoxia, now resolved. 3. History of schizophrenia and insomnia. Continue home mirtazapine, trazodone, and Invega. 4. Disposition. Anticipating discharge in 24 hours. Plan of care discussed with him. He is in agreement. cc: Venkata Fonseca MD
[2019-07-27] MEDS: PREDNISONE PO SCH (17:01)
[2019-07-27] MEDS: LOVENOX SUBQ SCH (17:01)
[2019-07-27] MEDS: REMERON SOLTAB PO SCH (20:18)
[2019-07-27] MEDS: DESYREL PO SCH (20:18)
[2019-07-27] MEDS: INVEGA PO SCH (20:18)
[2019-07-28] MEDS: DUONEB (A & A) INH SCH ×3 (03:12→11:50)
[2019-07-28] MEDS: PROTONIX PO SCH (06:11)
[2019-07-28] MEDS: PREDNISONE PO SCH (06:11)
[2019-07-28] MEDS: NICODERM PATCH TD SCH (10:06)
[2019-07-28 11:54] VITALS: BP 137/68
--- NOTE | 2019-07-29 08:31 | DISCHARGE SUMMARY ---
ADMISSION DATE: 07/26/2019 DISCHARGE DATE: 07/28/2019 DISCHARGE DISPOSITION: Home. DISCHARGE CONDITION: Hemodynamically stable. He is breathing well on room air. His wheezing has significantly decreased. I gave him two options, one was to stay in the hospital for another day, and probably get IV steroids. The second option was to let him go home on oral steroids. He decided to choose the first option so I will discharge him on oral steroids. VITALS: Currently, temperature of 97.5 degrees, pulse 96, respiratory 18, blood pressure 130/60, and saturating 95% on room air. PHYSICAL EXAMINATION: General: Does not appear in any acute distress. HEENT: Oral cavity is moist. Lungs: Air entry bilaterally equal. Mild end-expiratory wheezes. No rhonchi or crackles. Heart: S1, S2 normal. No murmur, rub, or gallop. Abdomen: Soft, obese, and nontender. Extremities: No lower extremity edema. Neurologic: He is alert and oriented x3. LABORATORY: [place] [address] [place], platelet count of 273,000, likely because of steroid. His BMP was largely unremarkable. On presentation, he did have lactic acidosis as high as 4.9, which had improved to 2.1. Urine culture and urine toxicology was unremarkable. Blood culture did not have growth. DISCHARGE DIAGNOSES: 1. Status asthmaticus. 2. Likely moderate persistent asthma. 3. Active tobacco abuse. 4. Lactic acidosis. OTHER DIAGNOSES: History of paranoid schizophrenia with previous suicide attempt. DISCHARGE MEDICATIONS: 1. Extended release Invega 1.5 mg at nighttime. 2. Mirtazapine 15 mg at nighttime. 3. Trazodone 100 mg at nighttime. 4. Prednisone 20 mg tablet to be taken as 40 mg b.i.d. for 3 days, 20 mg b.i.d. for 3 days, 20 mg daily for 3 days, and stop. Twelve day course was prescribed. 5. Pantoprazole 40 mg daily 15 tablets have been prescribed. 6. Symbicort 80/4.5 mcg inhaler 1 inhalation b.i.d. 1 inhaler with 1 refill was prescribed. HOSPITAL COURSE SUMMARY: Mr. Diego is a 44-year-old man with past medical history of asthma, who initially presented with chief complaint of shortness of breath which was progressively getting worse over one day's time. In the emergency room, he was found to be wheezing and his oxygen saturation was 94% on room air so the hospitalist team was consulted for further management. He was kept in the hospital 48 hours for inhaled bronchodilators and intravenous steroid, which he was tolerating well. On the next day, his intravenous steroids were changed to oral steroids, and he was still feeling good so it was decided to discharge him on oral steroids. He was advised to have a follow up with his regular physician as well as establish care with a cloth examiner as needed. Flu swab was ordered on admission which was not done. At the time of discharge, he was feeling better. TIME SPENT: Less than 30 minutes were spent in discharging this patient. Plan of care discussed with him. He was in agreement. All of his questions were answered. cc: Venkata Fonseca MD MTDD
== END 2019-07-28 13:46 | disposition home or self-care (01) | DRG 202 ==
LOC: ED 09:18 → EDIPHOLD 12:41 → 3N 15:27
PROVIDERS: ATTEND Internal Medicine